=== PATIENT | female | born 1945 | race Caucasian/White ===

== ENCOUNTER 2020-07-06 09:11 | Outpatient (REF) | payer MEDICARE, SELFPAY ==
[2020-07-06 12:30] LABS: Thyroid Stimulating Hormone 2.57 uIU/mL (0.32-4.0)
== END 2020-07-06 09:12 | disposition home or self-care (01) ==
LOC: HO.HMGCLDS 09:11
PROVIDERS: Visit Provider Nurse Practitioner Family
DX: E03.9 Hypothyroidism, unspecified (principal)
CPT/HCPCS: 84443

== ENCOUNTER 2021-11-18 11:54 | Outpatient (REF) | payer MEDICARE, SELFPAY ==
[2021-11-18 12:22] LABS: Binax Internal Control QC Valid; Binax Now Covid-19 Ag Negative (Negative)
== END 2021-11-18 11:55 | disposition home or self-care (01) ==
LOC: HO.HMGCLDS 11:54
PROVIDERS: Visit Provider Physician Assistant Medical
DX: Z20.822 Contact with and (suspected) exposure to COVID-19 (principal); B37.0 Candidal stomatitis
CPT/HCPCS: 87071; 87205

== ENCOUNTER 2022-01-12 13:35 | Outpatient (REF) | payer MEDICARE, SELFPAY ==
--- NOTE | ~2022-01-12 | MR_ITS ---
MRI OF THE BRAIN WITHOUT IV CONTRAST INDICATION: FREQUENT FALLS COMPARISON: None available. TECHNIQUE: Multiplanar multisequence MR imaging of the brain was obtained without IV contrast. FINDINGS: There is no hydrocephalus, extra-axial surface collection, or herniation. There is global cerebral volume loss and there is moderate chronic microangiopathy. The major flow voids at the skull base are preserved. There is no acute infarct on diffusion-weighted imaging. There is no intracranial hemorrhage on the gradient recalled echo acquisition. The midline structures are normal. The cerebellar tonsils are normally positioned. The cerebellum and brainstem are normal. The craniocervical junction is normal. Osseous marrow signal intensity is homogenous. The visualized soft tissues are unremarkable. MR/MR head/brain wo con IMPRESSION: - No acute intracranial findings. - There is global cerebral volume loss and there is moderate chronic microangiopathy.
--- NOTE | ~2022-01-12 | XR_ITS ---
EXAMINATION: XR CHEST CLINICAL INFORMATION: SOB, dyspnea on exertion. COMPARISON: Chest 06/18/2013. TECHNIQUE: 2 views of the chest were obtained. FINDINGS: The lungs are well expanded and clear. The heart size and pulmonary vascularity is normal. There are two soft tissue densities along the right lateral chest wall new since the previous study. Suspect pleural-based lesions. No gross bony abnormality involving the ribs except for mild spondylosis dorsal spine. XR/XR chest 2V IMPRESSION: Expanded lungs with no acute pneumonic process. New soft tissue densities along the right lateral chest wall question pleural-based lesions. Recommend CT chest for further evaluation.
== END 2022-01-12 13:36 | disposition home or self-care (01) ==
LOC: HO.MRI 13:35
PROVIDERS: Visit Provider Nurse Practitioner Family
DX: R29.6 Repeated falls (principal); R06.02 Shortness of breath
CPT/HCPCS: 70551; 71046

== ENCOUNTER → 2022-02-24 07:29 | Outpatient (REF) | payer MEDICARE, SELFPAY ==
--- NOTE | 2022-02-24 07:34 | CA_ITS ---
Transthoracic Echocardiogram Patient (Last, First, Middle): Muna Styles A Gender: Female Date of : 1945 Age: 76 Procedure Date: 02/24/2022 Procedure Type: Transthoracic Echocardiogram Location: OP Height: 165.1 cm Weight: 84.82 kg BSA: 1.92 m2 Heart Rate: 88 bpm BP: 124 / 62 mmHg Computer Equipment Installer: SB Referring MD: Kelly Wise NP Symptoms: SOB JUDGE Study Quality: Fair/Contrast ECG Rhythm: Sinus Conclusions: - The left ventricular systolic function is hyperdynamic. The calculated ejection fraction is 71% by biplane method. - With agitated saline contrast, no interatrial shunting at rest. During valsalva, few bubbles cross over indicating small PFO. - No obvious valvular pathology seen on this study. - There is a small loculated pericardial effusion overlying the left ventricle. Findings Procedure Information Contrast agent, definity, is being given per protocol without apparent complications. Left Ventricle Normal left ventricular cavity size. The left ventricular systolic function is hyperdynamic. The calculated ejection fraction is 71% by biplane method. E/E prime ratio is <8, consistent with normal filling pressures. Evidence suggests grade I (mild) diastolic dysfunction. There is mild septal asymmetric hypertrophy. Right Ventricle Normal right ventricular cavity size and systolic function. Atria Both atria are normal in size. With agitated saline contrast, no interatrial shunting at rest. During valsalva, few bubbles cross over indicating small PFO. Aortic Valve There is a normal trileaflet aortic valve. There is no aortic valve stenosis. There is no aortic valve regurgitation. Mitral Valve The mitral valve appears normal. There is no mitral valve regurgitation. There is no mitral valve stenosis. Pulmonic Valve The pulmonic valve is likely normal. Tricuspid Valve There is trace tricuspid valve regurgitation. The pulmonary artery systolic pressure is normal. Great Vessels The aortic annulus, sinuses of valsalva, and asc aorta are normal in size. Venous The inferior vena cava is normal in size and collapses greater than 50% with inspiration. Pericardium/Pleural There is a small loculated pericardial effusion overlying the left ventricle. There are no definitive echocardiographic findings of tamponade physiology. Prior Study Comparison No prior study available for comparison. Recommendations, Care & Conclusions No obvious valvular pathology seen on this study. Measurements 2D Linear Measurements IVSd: 1.19 0.6-0.9/0.6-1.0 cm LVIDd: 3.98 3.9-5.3/4.2-5.9 cm LVIDd Index: 2.07 2.4-3.2/2.2-3.1 cm/m2 LVIDs: 2.32 2.0-3.6 cm LVPWd: 0.90 0.7-1.1 cm LA Diam: 4.20 2.7-3.8/3.0-4.0 cm LAIDs Index: 2.19 1.5-2.3 cm/m2 LV Mass: 166.57 67-162/88-224 g LV Mass Index: 86.75 43-95/49-115 g/m2 LVOT Diam: 2.20 3.0+(-)1.3 cm 2D Systolic Function EF 4C: 81.60 >55% EF 2C: 55.40 >55% EF BiP: 70.70 >55% Mitral Valve MV Pk E: 0.67 MV PK A: 0.81 MV Decel Time: 177.00 E/A: 0.80 E'Lateral: 4.90 E'Medial: 4.57 E/E' Med: 14.70 E/E' Lat: 13.70 PHT: 52.00 MVA PHT: 4.23 Decel [place]: 3.80 Aortic Valve AoV Pk Mike: 1.02 AoV Mn Mike: 0.75 AoV VTI: 0.19 AoV Pk Grad: 4.00 Aov Mn Grad: 2.00 KESHAV Cont.VTI: 3.92 LVOT LVOT Pk Mike: 0.88 LVOT Mn Mike: 0.63 LVOT VTI: 0.19 LVOT Pk Grad: 3.00 LVOT Mn Grad: 2.00 LVOT Diam: 2.20 LVOT Area: 3.80 Diastolic Function MV Pk E: 0.67 MV Pk A: 0.81 E/A: 0.80 E'Medial: 4.57 E/E' Med: 14.70 E' Laterial: 4.90 E/E' Lat: 13.70 Right Ventricle TAPSE (mm): 18.20 TVS' Mike: 14.10 Tricuspid Valve RA Press: 3.00 Great Vessels Aorta Sinus of Valsalva: 3.30 2.0-3.5 cm Ao Asc: 3.00 2.1-3.4 cm Pulmonary Valve PV Pk Mike: 1.02 Peak PV Grad: 4.00 Updated in Other Vendor System with Status of Final Satish Baldwin MD electronically signed on 02/26/2022 11:12:13 AM with status of Final
== END ==
LOC: HO.CARD 07:29
PROVIDERS: Visit Provider Nurse Practitioner Family
DX: R06.00 Dyspnea, unspecified (principal); R06.02 Shortness of breath
CPT/HCPCS: 93306; Q9957

== ENCOUNTER 2023-01-26 11:17 | Outpatient (REF) | payer MEDICARE, SELFPAY ==
[2023-01-26 14:31] LABS: MANUAL DIFF FLAG NO
[2023-01-26 14:43] LABS: Basophils Absolute Auto 0.1 X10*3/uL (0.0-0.2); Basophils Percent Auto 1.1 % (0-2); Eosinophils Absolute Auto 0.3 X10*3/uL (0.0-0.4); Eosinophils Percent Auto 3.8 % (0-4); Hemoglobin 12.8 g/dl (12.0-16.0); Imm Gran Abs Auto 0.02 X10*3/uL (0.00-0.03); Imm Gran Pct Auto 0.3 % (0.0-0.4); Lymphocytes Absolute Auto 2.2 X10*3/uL (1.2-4.9); Lymphocytes Percent Auto 30.9 % (20-40); Mean Corpuscular Hemoglobin 31.1 pg (27.0-33.0); Mean Corpuscular Volume 97.1 fL (80.0-98.0); Mean Platelet Volume 10.9 fL (9.4-12.3); Monocytes Absolute Auto 0.5 X10*3/uL (0.1-1.2); Monocytes Percent Auto 7.5 % (2-11); Neutrophils Percent Auto 56.4 % (45-73); Platelet Count 343 X10*3/uL (160-400); Red Blood Count 4.12 X10*6/uL (4.20-5.50); Red Cell Distribution Width 14.1 % (11.0-16.0); White Blood Count 7.2 X10*3/uL (4.8-10.8)
[2023-01-26 15:03] LABS: Alanine Aminotransferase 12 U/L (0-31); Albumin Level 4.2 g/dL (3.5-5.0); Alkaline Phosphatase 88 U/L (39-117); Anion Gap 15 (12-20); Aspartate Amino Transferase 13 U/L (5-31); Bilirubin Total 0.7 mg/dL (0.0-1.0); Blood Urea Nitrogen 33 mg/dL (9-16); Calcium 9.2 mg/dL (8.4-10.2); Carbon Dioxide 22 mmol/L (22-29); Chloride 108 mmol/L (96-108); Cholesterol 211 mg/dL; Estimated Glomerular Filt Rate 51; Glucose Fasting 104 mg/dL (60-99); HDL Cholesterol 44 mg/dL; LDL Cholesterol Calculated 145 mg/dl; Potassium 4.4 mmol/L (3.3-5.1); Sodium 141 mmol/L (135-145); Total Protein 7.1 g/dL (6.5-8.0); Triglycerides 110 mg/dL
[2023-01-26 15:22] LABS: TSH reflex Free T4 1.98 uIU/mL (0.32-4.0); Vitamin D 25-OH Total 32.6 ng/mL (>30)
== END 2023-01-26 11:18 | disposition home or self-care (01) ==
LOC: HO.HMGCLDS 11:17
PROVIDERS: PCP Internal Medicine; Visit Provider Internal Medicine
DX: Z00.00 Encounter for general adult medical examination without abnormal findings (principal); E03.9 Hypothyroidism, unspecified; E55.9 Vitamin D deficiency, unspecified
CPT/HCPCS: 36415; 80053; 80061; 82306; 84443; 85025

== ENCOUNTER 2023-07-31 12:28 | Outpatient (AMB) | payer MEDICARE, SELFPAY ==
--- NOTE | 2023-07-31 12:44 | A.OFFPC_ITS ---
Vital Signs 07/31/23 12:46 Height 5 ft 5 in Weight 192 lb BMI 31.9 BP 128/78 Blood Pressure Location Rt brachial Position Sitting Pulse 94 Pulse Source Pulse Oximeter Pulse Oximetry (%) 98 Oxygen Delivery Method Room Air Intake Visit Reasons: 6m follow up thyroid Intake Note: Pt is here today for 6 months follow up visit. Pt states that she has been getting SOB and wheezing, she has been having dry cough.Pt also states that she has been getting cramping in her legs. Allergies No Known Allergies Allergy (Mild, Unverified 07/31/23 12:48) NOT APPLICABLE Medication List - Last Reconciled 07/31/23 by Nisha Paz MD ketoconazole 2% 1 appl topical DAILY levothyroxine 100 mcg PO DAILY mirtazapine 15 mg PO BEDTIME omeprazole 20 mg PO DAILY Tobacco use date assessed: 07/31/23 Fall risk assessment: 2 + Falls in past year Last assessed Fall Risk: 07/31/23 Dental Screening Dental Screen Date: 07/31/23 Did you have a dental visit in the last 12 months?: Yes Did you have a dental problem in the last 6 months where you did not have access to dental care?: No Was dental information given to patient?: Patient has dentist HPI 6m follow up thyroid HPI Details Pt presents for f/u. Patient reports worsening depression since she stopped taking citalopram which was not effective and had interaction with omeprazole. Patient denies suicidal ideation change in appetite but complains of insomnia. Hypothyroidism is stable on levothyroxine. patient follows up with GI for chronic GERD stable on omeprazole. [facility] Medical History (Updated 07/31/23 @ 13:46 by Nisha Paz MD) Thrush, oral Surgical History Hx of total knee replacement Hx of bilateral hip replacements Hx of bilateral breast reduction surgery Family History Mother Stomach cancer Father Rectal cancer Sister Mental health disorder Brother Throat cancer Brother Leukemia Social History Household Members Other:: single, retired nurse Housing: House Patient Tobacco Use Status: Never used Tobacco e-Cigarette/Vaping Use: Never Used Current occupational status: retired Cognitive needs: No Hearing needs: No Vision needs: No Questionnaire Thrive Questionnaire Date Thrive assessed: 01/26/23 AUDIT C Alcohol Use Questionnaire (AUDIT-C) 1. How often do you have a drink containing alcohol?: Never 3. How often do you have six or more drinks on one occasion?: Never Total Score: 0 HANK-7 AMB Questionnaire HANK-7 Date HANK - 7 assessed: 01/26/23 Source: Developed by Drs. Codey Andersen, Audra Fry, Jayy Ellis and colleagues, with an educational whitney from [employer]. Review of Systems Const All systems reviewed & are unremarkable except as noted in HPI and below Reports no additional complaints Eyes Reports no additional complaints ENT Reports no additional complaints Card Reports no additional complaints Resp Reports no additional complaints GI Reports no additional complaints Reports no additional complaints Physical exam (Primary Care) Vital Signs: Last Vital Signs Pulse 94 07/31/23 12:46 BP 128/78 07/31/23 12:46 Pulse Ox 98 07/31/23 12:46 Oxygen Delivery Method Room Air 07/31/23 12:46 BMI result Body Mass Index 31.9 Tobacco/Smoking Status: Tobacco use Status Tobacco use date assessed 07/31/23 07/31/23 12:54 Patient Tobacco Use Status Never used Tobacco 07/31/23 12:46 e-Cigarette/Vaping Use Never Used 07/31/23 12:46 Thrive Assessment: Date of Thrive Assessment Date Thrive assessed 01/26/23 07/31/23 12:46 Const General: no acute distress HENMT Ears: hearing grossly normal bilaterally Neck Neck: Yes supple Resp Effort & Inspection: normal respiratory effort Auscultation: clear to auscultation bilaterally Cardio Rhythm: regular rhythm Heart sounds: S1 normal heart sound present and S2 normal heart sound present Assessment and Plan Assessment & Plan (1) GERD (gastroesophageal reflux disease): Comment: s/p esophageal dilation , EGD by Dr. Martinez Code(s): K21.9 - Gastro-esophageal reflux disease without esophagitis Plan: Continue PPI follow-up with GI (2) Hypothyroid: Code(s): E03.9 - Hypothyroidism, unspecified Plan: Continue levothyroxine (3) Anxiety and depression: Code(s): F41.9 - Anxiety disorder, unspecified; F32.A - Depression, unspecified Plan: Try Mirtazapine 15 mg q.h.s.pt declined referral to psychiatry, fu 2 months Orders: Orders Lipid Panel 2 Months E03.9 - Hypothyroidism, unspecified, K21.9 - Gastro- esophageal reflux disease without esophagitis, Z00.00 - Encounter for general adult medical examination without abnormal findings Comprehensive [place]. Panel Fast 2 Months E03.9 - Hypothyroidism, unspecified, K21.9 - Gastro-esophageal reflux disease without esophagitis, Z00.00 - Encounter for general adult medical examination without abnormal findings TSH reflex Free T4 2 Months E03.9 - Hypothyroidism, unspecified, K21.9 - Gastro- esophageal reflux disease without esophagitis, Z00.00 - Encounter for general adult medical examination without abnormal findings Complete Blood Count Auto Diff 2 Months E03.9 - Hypothyroidism, unspecified, K21.9 - Gastro-esophageal reflux disease without esophagitis, Z00.00 - Encounter for general adult medical examination without abnormal findings Medications: New mirtazapine 15 mg PO BEDTIME 90 tabs 1RF Coding Level of Care Code Est Pt Level 4 (29753) Diagnoses GERD (gastroesophageal reflux disease) K21.9 Hypothyroid E03.9 Anxiety and depression F41.9; F32.A
[2023-07-31 12:46] VITALS: BP 128/78; PULSE 94; O2SAT 98; BMI 31.9
== END 2023-07-31 13:49 | disposition home or self-care (01) ==
PROVIDERS: PCP Internal Medicine; Visit Provider Internal Medicine
DX: K21.9 Gastro-esophageal reflux disease without esophagitis (principal); E03.9 Hypothyroidism, unspecified; F41.9 Anxiety disorder, unspecified; F32.A Depression, unspecified
CPT/HCPCS: 99214

== ENCOUNTER 2023-09-21 09:42 | Outpatient (REF) | payer MEDICARE, SELFPAY ==
[2023-09-21 13:13] LABS: MANUAL DIFF FLAG NO
[2023-09-21 14:13] LABS: Basophils Absolute Auto 0.1 X10*3/uL (0.0-0.2); Basophils Percent Auto 1.1 % (0-2); Eosinophils Absolute Auto 0.5 X10*3/uL (0.0-0.4); Eosinophils Percent Auto 8.4 % (0-4); Hematocrit 38.7 % (37.0-47.0); Hemoglobin 12.3 g/dl (12.0-16.0); Imm Gran Abs Auto 0.02 X10*3/uL (0.00-0.03); Imm Gran Pct Auto 0.4 % (0.0-0.4); Lymphocytes Absolute Auto 1.8 X10*3/uL (1.2-4.9); Lymphocytes Percent Auto 33.2 % (20-40); Mean Corpuscular HGB Conc 31.8 g/dl (31.0-35.0); Mean Corpuscular Hemoglobin 30.9 pg (27.0-33.0); Mean Corpuscular Volume 97.2 fL (80.0-98.0); Mean Platelet Volume 10.6 fL (9.4-12.3); Monocytes Absolute Auto 0.5 X10*3/uL (0.1-1.2); Monocytes Percent Auto 9.7 % (2-11); Neutrophils Absolute Auto 2.6 x10*3/uL (2.0-8.3); Neutrophils Percent Auto 47.2 % (45-73); Platelet Count 356 X10*3/uL (160-400); Red Blood Count 3.98 X10*6/uL (4.20-5.50); Red Cell Distribution Width 13.9 % (11.0-16.0); White Blood Count 5.5 X10*3/uL (4.8-10.8)
[2023-09-21 14:33] LABS: Alanine Aminotransferase 17 U/L (0-31); Alkaline Phosphatase 88 U/L (39-117); Anion Gap 12 (12-20); Aspartate Amino Transferase 18 U/L (5-31); Bilirubin Total 0.4 mg/dL (0.0-1.0); Blood Urea Nitrogen 22 mg/dL (9-16); Carbon Dioxide 23 mmol/L (22-29); Chloride 110 mmol/L (96-108); Cholesterol 206 mg/dL (<200); Estimated Glomerular Filt Rate 58; Glucose Fasting 95 mg/dL (60-99); HDL Cholesterol 42 mg/dL (>40); LDL Cholesterol Calculated 138 mg/dL (<100); Potassium 3.8 mmol/L (3.3-5.1); Sodium 141 mmol/L (135-145); Total Protein 7.3 g/dL (6.5-8.0); Triglycerides 130 mg/dL (<150)
== END 2023-09-21 09:43 | disposition home or self-care (01) ==
LOC: HO.HMGCLDS 09:42
PROVIDERS: PCP Internal Medicine; Visit Provider Internal Medicine
DX: Z00.00 Encounter for general adult medical examination without abnormal findings (principal); E03.9 Hypothyroidism, unspecified; K21.9 Gastro-esophageal reflux disease without esophagitis
CPT/HCPCS: 36415; 80053; 80061; 84443; 85025

== ENCOUNTER 2023-10-02 12:36 | Outpatient (AMB) | payer MEDICARE, SELFPAY ==
[2023-10-02 13:01] VITALS: BP 126/70; PULSE 96; O2SAT 96; BMI 33.3
--- NOTE | 2023-10-02 13:01 | MHC.PC.OV ---
Vital Signs 10/02/23 13:01 Height 5 ft 5 in Weight 200 lb BMI 33.3 BP 126/70 Blood Pressure Location Lt brachial Position Sitting Pulse 96 Pulse Source Pulse Oximeter Pulse Oximetry (%) 96 Oxygen Delivery Method Room Air Intake Visit Reasons: 2 month fu Intake Note: Pt is here today for 2 months follow up visit. Allergies No Known Allergies Allergy (Mild, Unverified 10/02/23 13:07) NOT APPLICABLE Medication List - Last Reconciled 10/02/23 by Nisha Paz MD ketoconazole 2% 1 appl topical DAILY levothyroxine 100 mcg PO DAILY mirtazapine 15 mg PO BEDTIME omeprazole 20 mg PO DAILY Tobacco use date assessed: 10/02/23 Fall risk assessment: 2 + Falls in past year Last assessed Fall Risk: 10/02/23 Dental Screening Dental Screen Date: 10/02/23 Did you have a dental visit in the last 12 months?: Yes Did you have a dental problem in the last 6 months where you did not have access to dental care?: No Was dental information given to patient?: Patient has dentist HPI 2 month fu HPI Details Pt presents for f/u for anxiety/depression, better on Mirtazapine. Pt gained 8 lbs. Pt c/o lower back when walking and intermittent right knee pain and stiffness. She has an appointment with [place] [facility] next week. Patient reports worsening dyspnea on exertion when walking short distance. She denies PND orthopnea palpitations but had an episode of chest tightness while eating the lasted a few minutes. Patient denies exercise induced chest pains or chest tightness. [facility] Medical History (Updated 10/02/23 @ 13:47 by Nisha Paz MD) Thrush, oral Surgical History (Updated 10/02/23 @ 13:47 by Nisha Paz MD) Hx of total knee replacement Hx of bilateral hip replacements Hx of bilateral breast reduction surgery Family History Mother Stomach cancer Father Rectal cancer Sister Mental health disorder Brother Throat cancer Brother Leukemia Social History Household Members Other:: single, retired nurse Housing: House Patient Tobacco Use Status: Never used Tobacco e-Cigarette/Vaping Use: Never Used Current occupational status: retired Cognitive needs: No Hearing needs: No Vision needs: No Questionnaire Thrive Questionnaire Date Thrive assessed: 01/26/23 HANK-7 AMB Questionnaire HANK-7 Date HANK - 7 assessed: 01/26/23 Source: Developed by Drs. Codey Andersen, Audra Fry, Jayy Ellis and colleagues, with an educational whitney from [employer]. Review of Systems Const All systems reviewed & are unremarkable except as noted in HPI and below Reports no additional complaints Eyes Reports no additional complaints ENT Reports no additional complaints Card Reports no additional complaints Resp Reports no additional complaints GI Reports no additional complaints Physical exam (Primary Care) Vital Signs: Last Vital Signs Pulse 96 10/02/23 13:01 BP 126/70 10/02/23 13:01 Pulse Ox 96 10/02/23 13:01 Oxygen Delivery Method Room Air 10/02/23 13:01 BMI result Body Mass Index 33.3 Tobacco/Smoking Status: Tobacco use Status Tobacco use date assessed 10/02/23 10/02/23 13:02 Patient Tobacco Use Status Never used Tobacco 10/02/23 13:02 e-Cigarette/Vaping Use Never Used 10/02/23 13:02 Thrive Assessment: Date of Thrive Assessment Date Thrive assessed 01/26/23 10/02/23 13:02 Const General: no acute distress HENMT Face and sinus: Yes normal facial exam Neck Neck: Yes no lymphadenopathy Resp Effort & Inspection: normal respiratory effort Auscultation: clear to auscultation bilaterally Cardio Rhythm: regular rhythm Heart sounds: S1 normal heart sound present and S2 normal heart sound present GI Inspection: Yes normal to inspection Palpation (GI): Soft to palpation Percussion: Yes normal to percussion Auscultation: normal bowel sounds Assessment and Plan Assessment & Plan (1) JUDGE (dyspnea on exertion): Code(s): R06.09 - Other forms of dyspnea Plan: Obtain echocardiogram to evaluate (2) Anxiety and depression: Code(s): F41.9 - Anxiety disorder, unspecified; F32.A - Depression, unspecified Plan: Continue Mirtazapine (3) Chronic lower back pain: Code(s): M54.50 - Low back pain, unspecified; G89.29 - Other chronic pain Plan: Patient will follow-up with orthopedics. PT was recommended but patient declined. (4) Hx of total knee replacement: Code(s): Z96.659 - Presence of unspecified artificial knee joint (5) Hypothyroid: Code(s): E03.9 - Hypothyroidism, unspecified Plan: Continue levothyroxine Orders: Orders CA echo transthoracic complete Today R06.09 - Other forms of dyspnea Coding Level of Care Code Est Pt Level 4 (18342) Diagnoses JUDGE (dyspnea on exertion) R06.09 Anxiety and depression F41.9; F32.A Chronic lower back pain M54.50; G89.29 Hx of total knee replacement Z96.659 Hypothyroid E03.9
== END 2023-10-02 13:50 | disposition home or self-care (01) ==
PROVIDERS: PCP Internal Medicine; Visit Provider Internal Medicine
DX: R06.09 Other forms of dyspnea (principal); F41.9 Anxiety disorder, unspecified; F32.A Depression, unspecified; M54.50 Low back pain, unspecified; G89.29 Other chronic pain; Z96.659 Presence of unspecified artificial knee joint; E03.9 Hypothyroidism, unspecified
CPT/HCPCS: 99214

== ENCOUNTER 2023-10-26 13:59 | Outpatient (AMB) | payer MEDICARE, SELFPAY ==
[2023-10-26 14:17] VITALS: BP 124/80; PULSE 95; O2SAT 98; BMI 33.3
--- NOTE | 2023-10-26 14:17 | MHC.PC.OV ---
Vital Signs 10/26/23 14:17 Height 5 ft 5 in Weight 200 lb BMI 33.3 BP 124/80 Blood Pressure Location Lt brachial Position Sitting Pulse 95 Pulse Source Pulse Oximeter Pulse Oximetry (%) 98 Oxygen Delivery Method Room Air Intake Visit Reasons: Urinary tract infection Intake Note: Pt is here today for a sick visit. Pt states that 3 weeks ago she had chills. Pt states that for last few days she has been having urine odor and burning when urinating that started this morning. Allergies No Known Allergies Allergy (Mild, Unverified 10/26/23 14:28) NOT APPLICABLE Medication List - Last Reconciled 10/26/23 by Nisha Paz MD doxycycline hyclate 100 mg PO BID ketoconazole 2% 1 appl topical DAILY levothyroxine 100 mcg PO DAILY mirtazapine 15 mg PO BEDTIME omeprazole 20 mg PO DAILY Tobacco use date assessed: 10/02/23 HPI Urinary tract infection HPI Details Patient complains of cloudy urine and dysuria this morning. she denies fever chills abdominal pain nausea vomiting. PFSH Medical History Thrush, oral Surgical History Hx of total knee replacement Hx of bilateral hip replacements Hx of bilateral breast reduction surgery Family History Mother Stomach cancer Father Rectal cancer Sister Mental health disorder Brother Throat cancer Brother Leukemia Social History Household Members Other:: single, retired nurse Housing: House Patient Tobacco Use Status: Never used Tobacco e-Cigarette/Vaping Use: Never Used Current occupational status: retired Cognitive needs: No Hearing needs: No Vision needs: No Questionnaire Thrive Questionnaire Date Thrive assessed: 01/26/23 HANK-7 AMB Questionnaire HANK-7 Date HANK - 7 assessed: 01/26/23 Source: Developed by Drs. Codey Andersen, Audra Fry, Jayy Ellis and colleagues, with an educational whitney from [employer]. Review of Systems Const All systems reviewed & are unremarkable except as noted in HPI and below Reports no additional complaints Eyes Reports no additional complaints ENT Reports no additional complaints Card Reports no additional complaints Resp Reports no additional complaints GI Reports no additional complaints Reports no additional complaints Physical exam (Primary Care) Vital Signs: Last Vital Signs Pulse 95 10/26/23 14:17 BP 124/80 10/26/23 14:17 Pulse Ox 98 10/26/23 14:17 Oxygen Delivery Method Room Air 10/26/23 14:17 BMI result Body Mass Index 33.3 Tobacco/Smoking Status: Tobacco use Status Tobacco use date assessed 10/02/23 10/26/23 14:28 Patient Tobacco Use Status Never used Tobacco 10/26/23 14:28 e-Cigarette/Vaping Use Never Used 10/26/23 14:28 Thrive Assessment: Date of Thrive Assessment Date Thrive assessed 01/26/23 10/26/23 14:28 Const General: no acute distress HENMT Mouth: Normal oral and palatal mucosa present Neck Neck: Yes supple Resp Effort & Inspection: normal respiratory effort Auscultation: clear to auscultation bilaterally Cardio Rhythm: regular rhythm Heart sounds: S1 normal heart sound present and S2 normal heart sound present GI Inspection: Yes normal to inspection Palpation (GI): Soft to palpation Percussion: Yes normal to percussion Auscultation: normal bowel sounds Results AMB Urinalysis, Automated UA Leukoctes 0 Gloria/uL Last Edit by ANNAMARIE Solorio on 10/26/23 14:35 UA Nitrite Negative Last Edit by ANNAMARIE Solorio on 10/26/23 14:35 UA Urobilinogen 0.2 mg/dL Last Edit by ANNAMARIE Solorio on 10/26/23 14:35 UA Protein 0 mg/dL Last Edit by ANNAMARIE Solorio on 10/26/23 14:35 UA pH 6.0 Last Edit by ANNAMARIE Solorio on 10/26/23 14:35 UA Blood 0 Geoffrey/uL Last Edit by ANNAMARIE Solorio on 10/26/23 14:35 UA Specific [place] 1.020 Last Edit by ANNAMARIE Solorio on 10/26/23 14:35 UA Ketone Negative Last Edit by ANNAMARIE Solorio on 10/26/23 14:35 UA Bilirubin 0 mg/dL Last Edit by ANNAMARIE Solorio on 10/26/23 14:35 UA Glucose 0 mg/dL Last Edit by ANNAMARIE Solorio on 10/26/23 14:35 Results Reviewed Results Reviewed: Laboratory Last Values Urine pH (Auto) 6.0 10/26/23 14:33 Specific [place] (Auto) 1.020 10/26/23 14:33 Urine Protein (Auto) 0 mg/dL 10/26/23 14:33 Glucose (UA)(Auto) 0 mg/dL 10/26/23 14:33 Urine Ketones (Auto) Negative 10/26/23 14:33 Urine Blood (Auto) 0 Geoffrey/uL 10/26/23 14:33 Urine Nitrite (Auto) Negative 10/26/23 14:33 Urine Bilirubin (Auto) 0 mg/dL 10/26/23 14:33 Urine Urobilinogen (Auto) 0.2 mg/dL 10/26/23 14:33 Leukocyte Esterase (Auto) 0 Gloria/uL 10/26/23 14:33 Assessment and Plan Assessment & Plan (1) UTI (urinary tract infection): Code(s): N39.0 - Urinary tract infection, site not specified Plan: Check urine culture Macrobid is sent to the pharmacy and supportive care discussed with the pt Orders: Orders Urine Culture Today R30.0 - Dysuria AMB Urinalysis Automated Today Z13.9 - Encounter for screening, unspecified Medications: New nitrofurantoin monohyd/m-cryst 100 mg (Macrobid) must administer with a meal/food 100 mg PO Q12H 7 days 14 caps 0RF Coding Level of Care Code Est Pt Level 3 (55975) Diagnoses UTI (urinary tract infection) N39.0
== END 2023-10-26 14:51 | disposition home or self-care (01) ==
PROVIDERS: PCP Internal Medicine; Visit Provider Internal Medicine
DX: N39.0 Urinary tract infection, site not specified (principal); R30.0 Dysuria
CPT/HCPCS: 81003; 99213

== ENCOUNTER 2023-10-26 14:33 | Outpatient (REF) | payer MEDICARE, SELFPAY | END 2023-10-26 14:34 | disposition home or self-care (01) | LOC: HO.LAB 14:33 | PROVIDERS: Visit Provider Internal Medicine | DX: R30.0 Dysuria (principal) | CPT/HCPCS: 87086; 87088 ==

== ENCOUNTER → 2023-10-30 12:49 | Outpatient (REF) | payer MEDICARE, SELFPAY ==
--- NOTE | 2023-10-30 12:52 | CA_ITS ---
Transthoracic Echocardiogram Patient (Last, First, Middle): Muna Styles A Gender: Female Date of : 1945 Age: 77 Procedure Date: 10/30/2023 Procedure Type: Transthoracic Echocardiogram Location: OP Height: 162.56 cm Weight: 86.18 kg BSA: 1.91 m2 Heart Rate: bpm BP: 120 / 72 mmHg Financing Analyst: YUNIOR Referring MD: Nisha Paz MD Symptoms: R06.09 - Other forms of dyspnea Study Quality: Adequate with Contrast ECG Rhythm: Sinus Conclusions: - The left ventricular systolic function is hyperdynamic. The calculated ejection fraction is 72% by biplane method. - No obvious valvular pathology seen on this study. - There is a small loculated pericardial effusion overlying the left ventricle. Findings Procedure Information Contrast agent, definity, is being given per protocol without apparent complications. Left Ventricle Normal left ventricular cavity size. There is normal left ventricular wall thickness. The left ventricular systolic function is hyperdynamic. The calculated ejection fraction is 72% by biplane method. There is no evidence of regional wall motion abnormalities. Diastolic function is normal for age. Right Ventricle Normal right ventricular cavity size and systolic function. Atria Both atria are normal in size. Aortic Valve There is a normal trileaflet aortic valve. There is no aortic valve stenosis. There is no aortic valve regurgitation. Mitral Valve The mitral valve appears normal. There is no mitral valve regurgitation. There is no mitral valve stenosis. Pulmonic Valve The pulmonic valve is likely normal. Tricuspid Valve There is trace tricuspid valve regurgitation. There is no evidence of pulmonary hypertension. Great Vessels The asc aorta is normal in size. Venous The inferior vena cava is normal in size and collapses greater than 50% with inspiration. Pericardium/Pleural There is a small loculated pericardial effusion overlying the left ventricle. Prior Study Comparison No significant change compared to prior study dated: 02/24/2022. Recommendations, Care & Conclusions No obvious valvular pathology seen on this study. Measurements 2D Linear Measurements IVSd: 1.17 0.6-0.9/0.6-1.0 cm LVIDd: 4.12 3.9-5.3/4.2-5.9 cm LVIDd Index: 2.16 2.4-3.2/2.2-3.1 cm/m2 LVIDs: 2.41 2.0-3.6 cm LVPWd: 1.00 0.7-1.1 cm LA Diam: 3.90 2.7-3.8/3.0-4.0 cm LAIDs Index: 2.04 1.5-2.3 cm/m2 LV Mass: 185.96 67-162/88-224 g LV Mass Index: 97.36 43-95/49-115 g/m2 LVOT Diam: 2.00 3.0+(-)1.3 cm 2D Systolic Function EF 4C: 74.70 >55% EF 2C: 73.20 >55% EF BiP: 71.90 >55% Mitral Valve MV Pk E: 0.74 MV PK A: 1.04 MV Decel Time: 158.00 E/A: 0.70 E'Lateral: 5.55 E'Medial: 4.24 E/E' Med: 17.50 E/E' Lat: 13.40 PHT: 46.00 MVA PHT: 4.78 Decel Laporte: 4.70 Aortic Valve AoV Pk Mike: 1.33 AoV Mn Mike: 0.95 AoV VTI: 0.30 AoV Pk Grad: 7.00 Aov Mn Grad: 4.00 KESHAV Cont.VTI: 2.35 LVOT LVOT Pk Mike: 0.94 LVOT Mn Mike: 0.66 LVOT VTI: 0.22 LVOT Pk Grad: 4.00 LVOT Mn Grad: 2.00 LVOT Diam: 2.00 LVOT Area: 3.14 Diastolic Function MV Pk E: 0.74 MV Pk A: 1.04 E/A: 0.70 E'Medial: 4.24 E/E' Med: 17.50 E' Laterial: 5.55 E/E' Lat: 13.40 Right Ventricle TAPSE (mm): 22.70 TVS' Mike: 12.90 Tricuspid Valve TR Pk Mike: 2.43 TR Pk Grad: 24.00 RA Press: 3.00 RVSP: 27.00 Great Vessels Aorta Sinus of Valsalva: 3.05 2.0-3.[address] [place]: 2.45 1.7-3.4 cm Ao Asc: 3.30 2.1-3.4 cm Updated in Other Vendor System with Status of Final Satish Baldwin MD electronically signed on 10/30/2023 11:56:20 AM with status of Final
== END ==
LOC: HO.CARD 12:49
PROVIDERS: PCP Internal Medicine; Visit Provider Internal Medicine
DX: R06.09 Other forms of dyspnea (principal)
CPT/HCPCS: 93306; Q9957

== ENCOUNTER → 2023-10-30 12:52 | Outpatient (BNV) | payer MEDICARE, SELFPAY | PROVIDERS: PCP Internal Medicine; Visit Provider Internal Medicine | DX: I31.39 Other pericardial effusion (noninflammatory) (principal) | CPT/HCPCS: 93306 ==

== ENCOUNTER 2023-12-28 11:07 | Outpatient (REF) | payer MEDICARE, SELFPAY ==
[2023-12-28 13:05] LABS: MANUAL DIFF FLAG NO
[2023-12-28 13:22] LABS: Basophils Absolute Auto 0.1 X10*3/uL (0.0-0.2); Basophils Percent Auto 1.5 % (0-2); Eosinophils Absolute Auto 0.3 X10*3/uL (0.0-0.4); Eosinophils Percent Auto 4.8 % (0-4); Hematocrit 39.1 % (37.0-47.0); Hemoglobin 12.6 g/dl (12.0-16.0); Imm Gran Abs Auto 0.01 X10*3/uL (0.00-0.03); Imm Gran Pct Auto 0.2 % (0.0-0.4); Lymphocytes Absolute Auto 2.3 X10*3/uL (1.2-4.9); Lymphocytes Percent Auto 38.3 % (20-40); Mean Corpuscular HGB Conc 32.2 g/dl (31.0-35.0); Mean Corpuscular Hemoglobin 30.8 pg (27.0-33.0); Mean Corpuscular Volume 95.6 fL (80.0-98.0); Mean Platelet Volume 10.7 fL (9.4-12.3); Monocytes Absolute Auto 0.6 X10*3/uL (0.1-1.2); Monocytes Percent Auto 9.3 % (2-11); Neutrophils Absolute Auto 2.8 x10*3/uL (2.0-8.3); Neutrophils Percent Auto 45.9 % (45-73); Platelet Count 366 X10*3/uL (160-400); Red Blood Count 4.09 X10*6/uL (4.20-5.50); Red Cell Distribution Width 14.8 % (11.0-16.0); White Blood Count 6.1 X10*3/uL (4.8-10.8)
[2023-12-28 14:02] LABS: Alanine Aminotransferase 14 U/L (0-31); Albumin Level 4.2 g/dL (3.5-5.0); Alkaline Phosphatase 91 U/L (39-117); Anion Gap 16 (12-20); Aspartate Amino Transferase 15 U/L (5-31); Bilirubin Total 0.7 mg/dL (0.0-1.0); Blood Urea Nitrogen 16 mg/dL (9-16); Calcium 9.5 mg/dL (8.4-10.2); Carbon Dioxide 23 mmol/L (22-29); Chloride 108 mmol/L (96-108); Cholesterol 179 mg/dL (<200); Estimated Glomerular Filt Rate 58; Glucose Fasting 104 mg/dL (60-99); HDL Cholesterol 42 mg/dL (>40); LDL Cholesterol Calculated 115 mg/dL (<100); Potassium 4.2 mmol/L (3.3-5.1); Sodium 143 mmol/L (135-145); Total Protein 7.4 g/dL (6.5-8.0); Triglycerides 114 mg/dL (<150)
[2023-12-28 14:08] LABS: TSH reflex Free T4 2.37 uIU/mL (0.32-4.0); Vitamin D 25-OH Total 25.1 ng/mL (>30)
== END 2023-12-28 11:08 | disposition home or self-care (01) ==
LOC: HO.HMGCLDS 11:07
PROVIDERS: PCP Internal Medicine; Visit Provider Internal Medicine
DX: E03.9 Hypothyroidism, unspecified (principal); E55.9 Vitamin D deficiency, unspecified; F32.A Depression, unspecified; F41.9 Anxiety disorder, unspecified
CPT/HCPCS: 36415; 80053; 80061; 82306; 84443; 85025

== ENCOUNTER 2023-12-29 13:15 | Outpatient (REF) | payer MEDICARE, SELFPAY ==
[2023-12-29 16:16] LABS: Appearance Urine Cloudy; Color Urine Yellow; Glucose Urine UA Negative (Negative); Leukocyte Esterase Urine Small (1+) (Negative); Nitrite Urine Negative (Negative); Specific Gravity - Urine 1.015 (1.005-1.025); UMIC TRIGGER UA YES; Urine Blood Negative (Negative); Urine Ketones Negative (Negative); Urine Protein Negative (Neg-Trace)
[2023-12-29 19:13] LABS: RBC Urine 0-2 /HPF (0-2)
[2023-12-29 19:14] LABS: Bacteria Urine 2+ (None Seen); Hyaline Casts Urine 0-2 /LPF (0-2); Other Crystals Urine Present; Squamous Epithelial Cell Urine 0-2 /HPF (0-2); WBC Urine 0-5 /HPF (0-5)
== END 2023-12-29 13:16 | disposition home or self-care (01) ==
LOC: HO.HMGCLNP 13:15
PROVIDERS: PCP Internal Medicine; Visit Provider Internal Medicine
DX: E03.9 Hypothyroidism, unspecified (principal); E55.9 Vitamin D deficiency, unspecified; F41.9 Anxiety disorder, unspecified; F32.A Depression, unspecified
CPT/HCPCS: 81001

== ENCOUNTER 2024-01-02 11:53 | Outpatient (AMB) | payer MEDICARE, SELFPAY ==
--- NOTE | 2024-01-02 12:00 | A.OFFPC_ITS ---
Vital Signs 01/02/24 12:01 Height 5 ft 5 in Weight 194 lb BMI 32.3 BP 124/76 Blood Pressure Location Lt brachial Position Sitting Pulse 91 Pulse Source Pulse Oximeter Pulse Oximetry (%) 96 Oxygen Delivery Method Room Air Intake Visit Reasons: Annual PE Intake Note: Pt is here today for PE. Allergies No Known Allergies Allergy (Mild, Unverified 01/02/24 12:05) NOT APPLICABLE Medication List - Last Reconciled 01/02/24 by Nisha Paz MD ketoconazole 2% 1 appl topical DAILY levothyroxine 100 mcg PO DAILY omeprazole 20 mg PO DAILY Tobacco use date assessed: 01/02/24 Fall risk assessment: No Falls in past year Last assessed Fall Risk: 01/02/24 Dental Screening Dental Screen Date: 10/02/23 HPI Annual PE HPI Details Patient presents for physical PFSH Surgical History Hx of total knee replacement Hx of bilateral hip replacements Hx of bilateral breast reduction surgery Family History Mother Stomach cancer Father Rectal cancer Sister Mental health disorder Brother Throat cancer Brother Leukemia Social History Household Members Other:: single, retired nurse Housing: House Patient Tobacco Use Status: Never used Tobacco e-Cigarette/Vaping Use: Never Used service: No Current occupational status: retired Cognitive needs: No Hearing needs: No Vision needs: No Questionnaire PHQ-9 Over the last 2 weeks, how often have you been bothered by any of the following problems? 1. Little interest or pleasure in doing things: not at all 2. Feeling down, depressed, or hopeless: not at all 3. Trouble falling or staying asleep, or sleeping too much: not at all 4. Feeling tired or having little energy: nearly every day 5. Poor appetite or overeating: not at all 6. Feeling bad about yourself - or that you are a failure or have let yourself or your family down: not at all 7. Trouble concentrating on things, such as reading the newspaper or watching television: not at all 8. Moving or speaking so slowly that other people could have noticed. Or the opposite - being so fidgety or restless that you have been moving around a lot more than usual: not at all 9. Thoughts that you would be better off or of hurting yourself in some way: not at all Total score: 3 Depression Screening Interpretation: Negative Depression Screening Done: Yes 60006 - PHQ-9 Billing: Yes Source: Developed by Drs. Codey Andersen, Audra Fry, Jayy Ellis and colleagues, with an educational whitney from [employer]. Thrive Questionnaire Date Thrive assessed: 01/02/24 I am a: Patient What is your living situation today?: I have a steady place to live Within the past 12 months, did the food you bought not last and you didn't have the money to get more?: Never true Within the past 12 months, did you worry whether your food would run out before you got money to buy more?: Never true Do you have trouble paying for medicines?: No Do you have trouble paying your heating and electricity bill?: No Do you have trouble taking care of your child, family member or friend?: No Do you have trouble with day-to-day activities such as bathing, preparing meals, shopping, managing finances, etc.?: No Are you currently unemployed and looking for a job?: No Are you interested in more education?: No Please select the resources that you would like help with: None Currently or been in a relationship where the following occur: no concerns reported THRIVE Score: 0 HANK-7 AMB Questionnaire HANK-7 Date HANK - 7 assessed: 01/02/24 Feeling nervous, anxious, or on edge: 0 = Not at all Not being able to stop or control worryin = Not at all Worrying too much about different things: 0 = Not at all Trouble relaxin = Not at all Being so restless that it is hard to sit still: 0 = Not at all Becoming easily annoyed or irritable: 0 = Not at all Feeling afraid as if something awful might happen: 0 = Not at all Total HANK-7 score (0-4 normal; 5-9 mild; 10-14 moderate; 15-21 severe): 0 Source: Developed by Drs. Codey Andersen, Jayy Salvador Kroenke and colleagues, with an educational whitney from [employer]. HANK-7 Assessment Billing HANK-7 Assessment Tool: HANK-7 Assessment 66187 Review of Systems Const All systems reviewed & are unremarkable except as noted in HPI and below ENT Reports no additional complaints Card Reports no additional complaints Resp Reports no additional complaints GI Reports no additional complaints Reports no additional complaints Physical exam (Primary Care) Vital Signs: Last Vital Signs Pulse 91 01/02/24 12:01 BP 124/76 01/02/24 12:01 Pulse Ox 96 01/02/24 12:01 Oxygen Delivery Method Room Air 01/02/24 12:01 BMI result Body Mass Index 32.3 Tobacco/Smoking Status: Tobacco use Status Tobacco use date assessed 01/02/24 01/02/24 12:09 Patient Tobacco Use Status Never used Tobacco 01/02/24 12:03 e-Cigarette/Vaping Use Never Used 01/02/24 12:03 Depression Screening Interpretation: Negative Thrive Assessment: Date of Thrive Assessment Date Thrive assessed 01/26/23 01/02/24 12:03 Currently or been in a relationship where the following occur: no concerns reported Const General: no acute distress HENMT Head: Yes normal to inspection Mouth: Normal oral and palatal mucosa present Eyes General: appearance normal, both eyes and all related structures Neck Neck: Yes no lymphadenopathy and Yes supple Resp Effort & Inspection: normal respiratory effort Auscultation: clear to auscultation bilaterally Cardio Rhythm: regular rhythm Heart sounds: S1 normal heart sound present and S2 normal heart sound present GI Inspection: Yes normal to inspection Palpation (GI): Soft to palpation Percussion: Yes normal to percussion Auscultation: normal bowel sounds Assessment and Plan Assessment & Plan (1) Annual physical exam: Code(s): Z00.00 - Encounter for general adult medical examination without abnormal findings Plan: Well-balanced diet regular physical activity weight loss discussed with the patient. Follow-up in 6 months (2) Hypothyroid: Code(s): E03.9 - Hypothyroidism, unspecified Plan: Continue levothyroxine (3) Vitamin D deficiency: Code(s): E55.9 - Vitamin D deficiency, unspecified Plan: Patient will take vitamin-D supplement un the winter months Coding Level of Care Code Est Pt Prev Care >65y(54057) Diagnoses Annual physical exam Z00.00 Hypothyroid E03.9 Vitamin D deficiency E55.9 Additional Codes HANK-7 Assessment Billing - HANK-7 Assessment Tool: HANK-7 Assessment 63139 ([id number])
[2024-01-02 12:01] VITALS: BP 124/76; PULSE 91; O2SAT 96; BMI 32.3
== END 2024-01-02 13:07 | disposition home or self-care (01) ==
PROVIDERS: PCP Internal Medicine; Visit Provider Internal Medicine
DX: Z00.00 Encounter for general adult medical examination without abnormal findings (principal); E03.9 Hypothyroidism, unspecified; E55.9 Vitamin D deficiency, unspecified
CPT/HCPCS: 99397

== ENCOUNTER 2024-05-22 12:27 | Outpatient (AMB) | payer MEDICARE, SELFPAY ==
[2024-05-22 12:35] VITALS: BP 136/82; PULSE 96; O2SAT 98; BMI 31.4
--- NOTE | 2024-05-22 12:35 | A.OFFPC_ITS ---
Vital Signs 05/22/24 12:35 Height 5 ft 5 in Weight 189 lb BMI 31.4 BP 136/82 Blood Pressure Location Rt brachial Position Sitting Pulse 96 Pulse Source Pulse Oximeter Pulse Oximetry (%) 98 Oxygen Delivery Method Room Air Intake Visit Reasons: blood pressure 188/100 Intake Note: Pt is here today for a follow up visit on elevated BP. Allergies No Known Allergies Allergy (Mild, Unverified 05/22/24 12:56) NOT APPLICABLE Medication List - Last Reconciled 05/22/24 by Nisha Paz MD ketoconazole 2% 1 appl topical DAILY levothyroxine 100 mcg PO DAILY omeprazole 20 mg PO DAILY valsartan 40 mg PO DAILY Tobacco use date assessed: 05/22/24 Fall risk assessment: No Falls in past year Last assessed Fall Risk: 05/22/24 Dental Screening Dental Screen Date: 10/02/23 HPI HPI Comments History of Present Illness Details Pt presents for f/u elevated BP on a few occasions. Patient reports being under increased stress for the last few weeks. She complains of insomnia on and off. She denies depression or suicide ideation PFSH Surgical History Hx of total knee replacement Hx of bilateral hip replacements Hx of bilateral breast reduction surgery Family History Mother Stomach cancer Father Rectal cancer Sister Mental health disorder Brother Throat cancer Brother Leukemia Social History Household Members Other:: single, retired nurse Housing: House Patient Tobacco Use Status: Never used Tobacco e-Cigarette/Vaping Use: Never Used service: No Current occupational status: retired Cognitive needs: No Hearing needs: No Vision needs: No Questionnaire Thrive Questionnaire Date Thrive assessed: 01/02/24 HANK-7 AMB Questionnaire HANK-7 Date HANK - 7 assessed: 01/02/24 Source: Developed by Drs. Codey Andersen, Audra Fry, Jayy Ellis and colleagues, with an educational whitney from [employer]. Review of Systems Const All systems reviewed & are unremarkable except as noted in HPI and below Card Reports no additional complaints Resp Reports no additional complaints GI Reports no additional complaints Physical exam (Primary Care) Vital Signs: Last Vital Signs Pulse 96 05/22/24 12:35 Pulse Ox 98 05/22/24 12:35 Oxygen Delivery Method Room Air 05/22/24 12:35 BMI result Body Mass Index 31.4 Tobacco/Smoking Status: Tobacco use Status Tobacco use date assessed 05/22/24 05/22/24 12:57 Patient Tobacco Use Status Never used Tobacco 05/22/24 12:35 e-Cigarette/Vaping Use Never Used 05/22/24 12:35 Thrive Assessment: Date of Thrive Assessment Date Thrive assessed 01/02/24 05/22/24 12:35 Const General: no acute distress HENMT Face and sinus: Yes normal facial exam Neck Neck: Yes supple Resp Effort & Inspection: normal respiratory effort Auscultation: clear to auscultation bilaterally Cardio Rhythm: regular rhythm Heart sounds: S1 normal heart sound present and S2 normal heart sound present GI Inspection: Yes normal to inspection Assessment and Plan Assessment & Plan (1) Hypothyroid: Code(s): E03.9 - Hypothyroidism, unspecified Plan: Continue levothyroxine (2) Vitamin D deficiency: Code(s): E55.9 - Vitamin D deficiency, unspecified Plan: Continue vitamin-D supplement (3) Anxiety and depression: Code(s): F41.9 - Anxiety disorder, unspecified; F32.A - Depression, unspecified Plan: Stress management discussed with the patient she declined medications (4) HTN (hypertension): Code(s): I10 - Essential (primary) hypertension Plan: START 40 MG OF VALSARTAN, INCREASE PHYSICAL ACTIVITY LOW-SODIUM DIET DISCUSSED WITH THE PATIENT FOLLOW-UP IN 1 MONTH Orders: Orders Vitamin D 25-OH Total 1 Month E03.9 - Hypothyroidism, unspecified, E55.9 - Vitamin D deficiency, unspecified, F32.A - Depression, unspecified, F41.9 - Anxiety disorder, unspecified Comprehensive [place]. Panel Fast 1 Month E03.9 - Hypothyroidism, unspecified, E55.9 - Vitamin D deficiency, unspecified, F32.A - Depression, unspecified, F41.9 - Anxiety disorder, unspecified Medications: New valsartan 40 mg PO DAILY 30 tabs 2RF Coding Level of Care Code Est Pt Level 4 (56023) Diagnoses Hypothyroid E03.9 Vitamin D deficiency E55.9 Anxiety and depression F41.9; F32.A HTN (hypertension) I10
== END 2024-05-22 15:12 | disposition home or self-care (01) ==
PROVIDERS: PCP Internal Medicine; Visit Provider Internal Medicine
DX: E03.9 Hypothyroidism, unspecified (principal); E55.9 Vitamin D deficiency, unspecified; F41.9 Anxiety disorder, unspecified; F32.A Depression, unspecified; I10 Essential (primary) hypertension

== ENCOUNTER → 2024-05-22 12:27 | Outpatient (BNVA) | payer MEDICARE, SELFPAY | PROVIDERS: PCP Internal Medicine; Visit Provider Internal Medicine | DX: I10 Essential (primary) hypertension (principal); E03.9 Hypothyroidism, unspecified; E55.9 Vitamin D deficiency, unspecified; F41.9 Anxiety disorder, unspecified; F32.A Depression, unspecified | CPT/HCPCS: 99212 ==

== ENCOUNTER 2024-06-26 08:51 | Outpatient (REF) | payer MEDICARE, SELFPAY ==
[2024-06-26 12:48] LABS: Alanine Aminotransferase 16 U/L (0-31); Albumin Level 4.1 g/dL (3.5-5.0); Alkaline Phosphatase 90 U/L (39-117); Anion Gap 14 (12-20); Aspartate Amino Transferase 22 U/L (5-31); Bilirubin Total 0.4 mg/dL (0.0-1.0); Blood Urea Nitrogen 21 mg/dL (9-16); Calcium 8.8 mg/dL (8.4-10.2); Carbon Dioxide 21 mmol/L (22-29); Chloride 111 mmol/L (96-108); Estimated Glomerular Filt Rate 56; Glucose Fasting 110 mg/dL (60-99); Potassium 4.1 mmol/L (3.3-5.1); Sodium 142 mmol/L (135-145); Total Protein 7.1 g/dL (6.5-8.0)
[2024-06-26 13:11] LABS: Vitamin D 25-OH Total 32.9 ng/mL (>30)
== END 2024-06-26 08:52 | disposition home or self-care (01) ==
LOC: HO.HMGCLDS 08:51
PROVIDERS: PCP Internal Medicine; Visit Provider Internal Medicine
DX: E55.9 Vitamin D deficiency, unspecified (principal); E03.9 Hypothyroidism, unspecified; F41.9 Anxiety disorder, unspecified; F32.A Depression, unspecified
CPT/HCPCS: 36415; 80053; 82306

== ENCOUNTER 2024-07-04 12:27 | Outpatient (AMB) | payer MEDICARE, SELFPAY ==
[2024-07-04 12:36] VITALS: BP 132/76; PULSE 96; O2SAT 98; BMI 32.3
--- NOTE | 2024-07-04 12:36 | MHC.PC.OV ---
Vital Signs 07/04/24 12:36 Height 5 ft 5 in Weight 194 lb 2 oz BMI 32.3 BP 132/76 Blood Pressure Location Rt brachial Position Sitting Pulse 96 Pulse Source Pulse Oximeter Pulse Oximetry (%) 98 Oxygen Delivery Method Room Air Intake Visit Reasons: 6m f/u Allergies No Known Allergies Allergy (Mild, Verified 07/04/24 12:38) NOT APPLICABLE Tobacco use date assessed: 07/04/24 Fall risk assessment: No Falls in past year Last assessed Fall Risk: 07/04/24 Dental Screening Dental Screen Date: 07/04/24 Did you have a dental visit in the last 12 months?: No Did you have a dental problem in the last 6 months where you did not have access to dental care?: No Was dental information given to patient?: No HPI 6m f/u HPI Details Pt presents for f/u of HTN, hypothyroid, GERD. Patient has been on go low diet and lost 8 lb in the last 2 months. PFS Surgical History Hx of total knee replacement Hx of bilateral hip replacements Hx of bilateral breast reduction surgery Family History Mother Stomach cancer Father Rectal cancer Sister Mental health disorder Brother Throat cancer Brother Leukemia Social History Household Members Other:: single, retired nurse Housing: House Patient Tobacco Use Status: Never used Tobacco e-Cigarette/Vaping Use: Never Used service: No Current occupational status: retired Cognitive needs: No Hearing needs: No Vision needs: No Questionnaire PHQ-9 Over the last 2 weeks, how often have you been bothered by any of the following problems? 1. Little interest or pleasure in doing things: several days 2. Feeling down, depressed, or hopeless: not at all 3. Trouble falling or staying asleep, or sleeping too much: several days 4. Feeling tired or having little energy: several days 5. Poor appetite or overeating: not at all 6. Feeling bad about yourself - or that you are a failure or have let yourself or your family down: not at all 7. Trouble concentrating on things, such as reading the newspaper or watching television: not at all 8. Moving or speaking so slowly that other people could have noticed. Or the opposite - being so fidgety or restless that you have been moving around a lot more than usual: several days 9. Thoughts that you would be better off or of hurting yourself in some way: not at all Total score: 4 Depression Screening Interpretation: Negative Depression Screening Done: Yes 69218 - PHQ-9 Billing: Yes Source: Developed by Drs. Codey Andersen, Audra Fry, Jayy Ellis and colleagues, with an educational whitney from [employer]. Thrive Questionnaire Date Thrive assessed: 07/04/24 I am a: Patient What is your living situation today?: I have a steady place to live Within the past 12 months, did the food you bought not last and you didn't have the money to get more?: Never true Within the past 12 months, did you worry whether your food would run out before you got money to buy more?: Never true Do you have trouble paying for medicines?: No Do you have trouble getting transportation to medical appointments?: No Do you have trouble paying your heating and electricity bill?: No Do you have trouble taking care of your child, family member or friend?: No Do you have trouble with day-to-day activities such as bathing, preparing meals, shopping, managing finances, etc.?: No Are you currently unemployed and looking for a job?: No Are you interested in more education?: No Please select the resources that you would like help with: None Currently or been in a relationship where the following occur: No concerns reported THRIVE Score: 0 AUDIT C Alcohol Use Questionnaire (AUDIT-C) 1. How often do you have a drink containing alcohol?: Never 3. How often do you have six or more drinks on one occasion?: Never Total Score: 0 Score Reviewed/Action Taken: Yes HANK-7 AMB Questionnaire HANK-7 Date HANK - 7 assessed: 07/04/24 Feeling nervous, anxious, or on edge: 1 = Several days Not being able to stop or control worryin = Several days Worrying too much about different things: 0 = Not at all Trouble relaxin = Not at all Being so restless that it is hard to sit still: 0 = Not at all Becoming easily annoyed or irritable: 1 = Several days Feeling afraid as if something awful might happen: 0 = Not at all Total HANK-7 score (0-4 normal; 5-9 mild; 10-14 moderate; 15-21 severe): 3 Source: Developed by Drs. Codey Andersen, Audra Fry, Jayy Ellis and colleagues, with an educational whitney from [employer]. HANK-7 Assessment Billing HANK-7 Assessment Tool: HANK-7 Assessment 49882 Review of Systems Const All systems reviewed & are unremarkable except as noted in HPI and below Eyes Reports no additional complaints Card Reports no additional complaints Resp Reports no additional complaints GI Reports no additional complaints Reports no additional complaints Physical exam (Primary Care) Vital Signs: Last Vital Signs Pulse 96 07/04/24 12:36 BP 132/76 07/04/24 12:36 Pulse Ox 98 07/04/24 12:36 Oxygen Delivery Method Room Air 07/04/24 12:36 BMI result Body Mass Index 32.3 Tobacco/Smoking Status: Tobacco use Status Tobacco use date assessed 07/04/24 07/04/24 12:39 Patient Tobacco Use Status Never used Tobacco 07/04/24 12:37 e-Cigarette/Vaping Use Never Used 07/04/24 12:37 PHQ-9: PHQ-9 Score PHQ-9: Total score 4 07/04/24 12:39 Depression Screening Interpretation: Negative Thrive Assessment: Date of Thrive Assessment Date Thrive assessed 07/04/24 07/04/24 12:39 Currently or been in a relationship where the following occur: No concerns reported Const General: no acute distress HENMT Mouth: Normal oral and palatal mucosa present Resp Effort & Inspection: normal respiratory effort Auscultation: clear to auscultation bilaterally Cardio Rhythm: regular rhythm Heart sounds: S1 normal heart sound present and S2 normal heart sound present GI Inspection: Yes normal to inspection Palpation (GI): Soft to palpation Percussion: Yes normal to percussion Auscultation: normal bowel sounds Coding Level of Care Code Est Pt Level 4 (15818) Diagnoses HTN (hypertension) I10 Hypothyroid E03.9 Vitamin D deficiency E55.9 Hyperglycemia R73.9 Additional Codes HANK-7 Assessment Billing - HANK-7 Assessment Tool: HANK-7 Assessment 59208 ([id number]) PHQ-9 - 75039 - PHQ-9 Billing: Yes ([id number]) Assessment & Plan Assessment & Plan (1) HTN (hypertension): Code(s): I10 - Essential (primary) hypertension Category: Medical Plan: Increase valsartan to 80 mg a day check basic metabolic panel in 2 weeks. Continue regular exercise low-sodium diet and weight loss (2) Hypothyroid: Code(s): E03.9 - Hypothyroidism, unspecified Category: Medical Plan: Continue levothyroxine (3) Vitamin D deficiency: Code(s): E55.9 - Vitamin D deficiency, unspecified Category: Medical Plan: Continue vitamin-D (4) Hyperglycemia: Code(s): R73.9 - Hyperglycemia, unspecified Category: Medical Plan: Continue ADA diet and increase exercise and weight loss Orders: Orders Lipid Panel 6 Months E03.9 - Hypothyroidism, unspecified, E55.9 - Vitamin D deficiency, unspecified, I10 - Essential (primary) hypertension, R73.9 - Hyperglycemia, unspecified TSH reflex Free T4 6 Months E03.9 - Hypothyroidism, unspecified, E55.9 - Vitamin D deficiency, unspecified, I10 - Essential (primary) hypertension, R73.9 - Hyperglycemia, unspecified Basic Metabolic Panel 2 Weeks I10 - Essential (primary) hypertension Comprehensive [place]. Panel Fast 6 Months E03.9 - Hypothyroidism, unspecified, E55.9 - Vitamin D deficiency, unspecified, I10 - Essential (primary) hypertension, R73.9 - Hyperglycemia, unspecified Complete Blood Count Auto Diff 6 Months E03.9 - Hypothyroidism, unspecified, E55.9 - Vitamin D deficiency, unspecified, I10 - Essential (primary) hypertension, R73.9 - Hyperglycemia, unspecified Hemoglobin A1c 6 Months E03.9 - Hypothyroidism, unspecified, E55.9 - Vitamin D deficiency, unspecified, I10 - Essential (primary) hypertension, R73.9 - Hyperglycemia, unspecified Vitamin D 25-OH Total 6 Months E03.9 - Hypothyroidism, unspecified, E55.9 - Vitamin D deficiency, unspecified, I10 - Essential (primary) hypertension, R73.9 - Hyperglycemia, unspecified Medications: New valsartan 80 mg PO DAILY 90 tabs 3RF Discontinued valsartan Discontinued Reason: Doctor's Order 40 mg PO DAILY 30 tabs 2RF
== END 2024-07-04 13:10 | disposition home or self-care (01) ==
LOC: HO.HMCC 12:27
PROVIDERS: PCP Internal Medicine; Visit Provider Internal Medicine
DX: I10 Essential (primary) hypertension (principal); E03.9 Hypothyroidism, unspecified; E55.9 Vitamin D deficiency, unspecified; R73.9 Hyperglycemia, unspecified

== ENCOUNTER → 2024-07-04 12:27 | Outpatient (BNVA) | payer MEDICARE, SELFPAY | PROVIDERS: PCP Internal Medicine; Visit Provider Internal Medicine | DX: I10 Essential (primary) hypertension (principal); E03.9 Hypothyroidism, unspecified; E55.9 Vitamin D deficiency, unspecified; R73.9 Hyperglycemia, unspecified | CPT/HCPCS: 96127; 99212 ==

== ENCOUNTER 2024-07-18 13:22 | Outpatient (AMB) | payer MEDICARE, SELFPAY ==
--- NOTE | 2024-07-18 13:28 | MHC.PC.OV ---
Vital Signs 07/18/24 13:31 Height 5 ft 5 in Weight 191 lb BMI 31.8 BP 124/72 Blood Pressure Location Lt brachial Position Sitting Pulse 84 Pulse Source Pulse Oximeter Pulse Oximetry (%) 100 Oxygen Delivery Method Room Air Intake Visit Reasons: 2 week follow up medication Intake Note: Pt is here today for 2 weeks follow up visit. Allergies No Known Allergies Allergy (Mild, Verified 07/18/24 13:33) NOT APPLICABLE Medication List - Last Reconciled 07/18/24 by Nisha Paz MD ketoconazole 2% 1 appl topical DAILY levothyroxine 100 mcg PO DAILY omeprazole 20 mg PO DAILY valsartan 80 mg PO DAILY Tobacco use date assessed: 07/04/24 Dental Screening Dental Screen Date: 07/04/24 HPI 2 week follow up medication HPI Details Patient presents for the follow-up on hypertension hypothyroidism, stable on current medications. PFSH Surgical History Hx of total knee replacement Hx of bilateral hip replacements Hx of bilateral breast reduction surgery Family History Mother Stomach cancer Father Rectal cancer Sister Mental health disorder Brother Throat cancer Brother Leukemia Social History Household Members Other:: single, retired nurse Housing: House Patient Tobacco Use Status: Never used Tobacco e-Cigarette/Vaping Use: Never Used service: No Current occupational status: retired Cognitive needs: No Hearing needs: No Vision needs: No Questionnaire Thrive Questionnaire Date Thrive assessed: 07/04/24 I am a: Patient What is your living situation today?: I have a steady place to live Within the past 12 months, did the food you bought not last and you didn't have the money to get more?: Never true Within the past 12 months, did you worry whether your food would run out before you got money to buy more?: Never true Do you have trouble paying for medicines?: No Do you have trouble getting transportation to medical appointments?: No Do you have trouble paying your heating and electricity bill?: No Do you have trouble taking care of your child, family member or friend?: No Do you have trouble with day-to-day activities such as bathing, preparing meals, shopping, managing finances, etc.?: No Are you currently unemployed and looking for a job?: No Are you interested in more education?: No Please select the resources that you would like help with: None Currently or been in a relationship where the following occur: No concerns reported THRIVE Score: 0 HANK-7 AMB Questionnaire HANK-7 Date HNAK - 7 assessed: 07/04/24 Source: Developed by Drs. Codey Andersen, Audra Fry, Jayy Ellis and colleagues, with an educational whitney from [employer]. Review of Systems Const All systems reviewed & are unremarkable except as noted in HPI and below Card Reports no additional complaints Resp Reports no additional complaints GI Reports no additional complaints Reports no additional complaints Physical exam (Primary Care) Vital Signs: Last Vital Signs Pulse 84 07/18/24 13:31 BP 124/72 07/18/24 13:31 Pulse Ox 100 07/18/24 13:31 Oxygen Delivery Method Room Air 07/18/24 13:31 BMI result Body Mass Index 31.8 Tobacco/Smoking Status: Tobacco use Status Tobacco use date assessed 07/04/24 07/18/24 13:29 Patient Tobacco Use Status Never used Tobacco 07/18/24 13:29 e-Cigarette/Vaping Use Never Used 07/18/24 13:29 Thrive Assessment: Date of Thrive Assessment Date Thrive assessed 07/04/24 07/18/24 13:29 Currently or been in a relationship where the following occur: No concerns reported Const General: no acute distress HENMT Throat: Yes posterior oropharynx normal Resp Effort & Inspection: normal respiratory effort Auscultation: clear to auscultation bilaterally Cardio Rhythm: regular rhythm Heart sounds: S1 normal heart sound present and S2 normal heart sound present GI Inspection: Yes normal to inspection Palpation (GI): Soft to palpation Coding Level of Care Code Est Pt Level 3 (93021) Diagnoses HTN (hypertension) I10 Hypothyroid E03.9 Assessment & Plan Assessment & Plan (1) HTN (hypertension): Code(s): I10 - Essential (primary) hypertension Category: Medical Plan: Continue valsartan low-sodium diet regular physical activity (2) Hypothyroid: Code(s): E03.9 - Hypothyroidism, unspecified Category: Medical Plan: Continue levothyroxine , follow-up in November
[2024-07-18 13:31] VITALS: BP 124/72; PULSE 84; O2SAT 100; BMI 31.8
== END 2024-07-18 13:59 | disposition home or self-care (01) ==
PROVIDERS: PCP Internal Medicine; Visit Provider Internal Medicine
DX: I10 Essential (primary) hypertension (principal); E03.9 Hypothyroidism, unspecified

== ENCOUNTER → 2024-07-18 13:22 | Outpatient (BNVA) | payer MEDICARE, SELFPAY | PROVIDERS: PCP Internal Medicine; Visit Provider Internal Medicine | DX: I10 Essential (primary) hypertension (principal); E03.9 Hypothyroidism, unspecified | CPT/HCPCS: 99212 ==

== ENCOUNTER 2024-12-12 08:07 | Outpatient (REF) | payer MEDICARE, SELFPAY ==
--- OUTSIDE RECORDS SUMMARY | 2024-12-12 08:19 | XMS_ITS ---
Author Organization [facility] Address [address] [place] [address] Care Team Providers Care Unemployment Examiner Name Role Phone Nisha Paz MD Primary Care Provider Unavaila Araceli Mack Unavailable [phone] Felisha Fong Unavailable [phone] REASON FOR VISIT snow Medications Medication SIG (Take, Route, Fr equency, Duration) Notes Start Date End Date Status Aleve Unknown Levothyroxine Sodium Active Synthroid Unknown Diflucan Unknown Nystatin Unknown Social History Tobacco use other than smoking: Question Answer Notes Are you an other tobacco user? No Encounters Encounter Location Date Provider Diagnosis [address] [address] 10/03/2024 Felisha Fong Plan Of Treatment Next Appt Details Provider Name:Araceli coelho, 12/17/2024 02:00:00 PM, [address] [place] [address], [address], Progress Notes * Muna ROSS ADOB:[birth year] (79 yo F)Acc No.[id number]:10/03/2024 Progress Notes Patient:?Muna ROSS Provider:?Felisha Fong DPM :1945???Age:78 Y???Sex:Female D ate:10/03/2024 Address:[address] [place] [phone] Pcp:Nisha Paz MD Subjective: * Chief Complaints: * ???1. Snow. * ROS:?General/Constitutional:?Nausea?denies.?Vomiting?denies.?Hunger Thirst?denies.?Loss appetite?denies.?Chills?denies.?Fatigue?denies.?Fever?denies.?Night Sweats?denies.?Unexplained weight loss?denies.?Unexplained weight gain?denies.?HEENTM:?Dentures?denies.?Dizziness?denies.?Glasses/contacts?admits.?Retinopathy?de nies.?Blurred/double vision?denies.?TMJ?denies.?Discharge/drainage?denies.?Implants?denies.?Sore throat?denies.?Dental implants?denies.?Hard of hearing ?denies.?Difficulty chewing/swallowing/speaking?denies.?Nose bleeds?denies.?Sore mouth?denies.?Respiratory:?On Oxygen?denies.?Pneumonia/pleurisy?denies.?Bronchitis?denies.?Emphysema?denies.?C oughing?denies.?Cough blood?denies.?Shortness of breath?denies.?Wheezing?denies.?Cardiovascular:?Pacemaker?denies.?MVP?denies.?WPW?denies.?CHF?denies.?Heart attack?denies.?Septal defect?denies.?Rapid beat?denies.?Chest pain ?denies.?Atrial Fib.?denies.?Murmur/Palpitations?denies.?Gastrointestinal:?Hemorrhoids?denies.?Stomach/Abdominal pain?denies.?Dark blood stool?denies.?Irritable bowel ?denies.?Constipation?admits.?Diarrhea?denies.?Hematology:?Swelling?denies.?Clots?denies.?Varicose Veins?denies.?Bruising?denies.?Bleeding problem?denies.?Genitourinary:?Blood urine?denies.?Frequent/Painfu/urination/bladder control?denies.?Kidney stones?denies.?Infection (UTI)?denies.?Nephropathy?denies.?sex trans dis (STD)?denies.?Prostate?denies.?Musculoskeletal:?Hammertoes?denies.?Bunions?denies.?Back Pain?admits.?Muscle Cramps/ Resting?denies.?Muscle cramps / walking?admits.?Generalized aches and pains?admits.?Weakness?admits.?Integ.:?Mojica?denies.?Scars?admits.?Corns/calluses?denies.?Ingrown nails?denies.?Painful nails?denies.?Open Sores?denies.?Rashes?denies.?Neurologic:?Difficulty sleeping?admits.?Brain disorder?denies.?Numbness?denies.?Balance trouble?admits.?Confusion?denies.?Fainting/blackouts?denies.?Tingling?denies.?Tr emors?denies.? * Medical History:?Arthritis, Back,Hip,and Knee pain, Cataracts, Diverticulosis, Hiatal hernia, Osteopenia, Reflux, Thyroid disorder, Measles, Mumps, Chicken pox, Joint implants/screws, Transfusions. * Surgical History:?right knee arthroscopy , breast surgery, bilateral , hip surgery , knee surgery, right 01/2016. * Family History:?Mother: dece ased, diagnosed with Other malignant neoplasm of unspecified site.?Father: , diagnosed with Other malignant neoplasm of unspecified site.? * Social History:?Tobacco Use:?Tobacco Use/Smoking?Are you a:: nonsmoker , Additional Findings: Tobacco Non-User: Current non-smoker.?Tobacco use other than smoking?Are you an other tobacco user??No ???Drugs/Alcohol:?Drugs?Have you used drugs other than those for medical reasons in the past 12 months??No ?Alcohol Screen?Did you have a drink containing alcohol in the past year?: No, Points: 0, Interpretation: Negative.?Miscellaneous:?Caffeine: yes, frequency:, 3-5 cups per day. ?Children: no. ?Exercise: yes, walking. ?Marital status: single. ?Occupation: Retired Nurse. * Medications:?Taking Levothyr oxine Sodium , Unknown Synthroid , Unknown Aleve , Unknown Diflucan , Unknown Nystatin Objective: * Vitals:? Assessment: Plan: * Treatment: * Images: * The named appointment provid er may or may not be the originator of this progress note, and it is not deemed complete until electronically signed by the appointment provider. Sign off status: Pending * Provider:?Felisha Fong DPM Date:?2024 Generated for Litzy jonas/Jessica/Naomi on:?12/12/2024 08:19 AM EDT
--- OUTSIDE RECORDS SUMMARY | 2024-12-12 08:20 | XMS_ITS ---
Author Organization [facility] Address [address] [place] [address] Care Team Providers Care Textile Conservator Name Role Phone Nisha Paz MD Primary Care Provider Unavaila Araceli Mack Unavailable [phone] Felisha Fong Unavailable [phone] REASON FOR VISIT [facility] Entered Encounters Encounter Location Date Provider Diagnosis [facility] [address] [place] [address] 09/26/2024 Felisha Fong Plan Of Treatment Next Appt Details Provider Name:Araceli coelho, 12/17/2024 02:00:00 PM, [address] [place], [address], Progress Notes * Muna ROSS ADOB:[birth year] (78 yo F)Acc No.[id number]:09/26/2024 Patient:?Muna ROSS :1945???Age:78 Y???Sex:Female Address:[address] [place] [address] * true * Date:? Generated for Nilei sumi/Jessica/eTransmitting on:?12/12/2024 08:20 AM EDT
--- OUTSIDE RECORDS SUMMARY | 2024-12-12 08:20 | XMS_ITS ---
Author Organization [facility] Address [address] [place] [address] Care Team Providers Care Client Services Assistant Name Role Phone Nisha Paz MD Primary Care Provider Codey Manzanares Unavailable [phone] REASON FOR VISIT cancel appt on 11/20/2024 Encounters Encounter Location Date Provider Diagnosis [facility] [address] [place] [address] 11/14/2024 Codey Martinez Plan Of Treatment No Information Progress Notes * PARIS ROSSDOB: [birth year] (78 yo F)Acc No.[id number]:11/14/2024 Patient:?PARIS ROSS :1945???Age:78 Y???Sex:Female Address:[address] [place] [address] * true * Date:? Generated for Litzy jonas/Jessica/eTransmitting on:?12/12/2024 08:19 AM EDT
--- OUTSIDE RECORDS SUMMARY | 2024-12-12 08:20 | XMS_ITS ---
Author Organization [facility] Address [address] [place] [address] Care Team Providers Care Electrical Continuity Inspector Name Role Phone Brandi ROCA, Nisha Primary Care Provider Codey Manzanares Unavailable [phone] REASON FOR VISIT Patient presents today for a screening colon Encounters Encounter Location Date Provider Diagnosis [facility] [address] [place] [address] 11/20/2024 Codey Martinez Plan Of Treatment No Information Progress Notes * PARIS ROSSDOB: [birth year] (79 yo F)Acc No.[id number]:11/20/2024 Progress Notes Patient:?PARIS ROSS Provider:?Codey Martinez MD :1945???Age:78 Y???Sex:Female D ate:11/20/2024 Address:[address] [place], [place] [id number] Pcp:Nisha Paz MD Subjective: * Chief Complaints: * ???1. Patient presents today for a screening colon. * Medical History:? Objective: * Vitals:? Assessment: Plan: * Treatment: * * The named appointment provid er may or may not be the originator of this progress note, and it is not deemed complete until electronically signed by the appointment provider. Sign off status: Pending * Provider:?Codey Martinez MD Date:? 025 Generated for Litzy jonas/Jessica/eTransmitting on:?12/12/2024 08:20 AM EDT
--- OUTSIDE RECORDS SUMMARY | 2024-12-12 08:20 | XMS_ITS | Clinical Summary ---
Author Organization [facility] Address [address] [place] [address] Care Team Providers Care Dining Services Director Name Role Phone Unavailable Primary Care Provider Unavailabl e Allergies No known active allergies Medications Medication Sig Dispensed Refills Start Date End Date Status [facility] ALL DAY PAIN RELIEF 220 MG tablet TAKE 1 TABLET (220 MG TOTAL) BY MOUTH EVERY 12 (TWELVE) HOURS NEEDED. 180 tablet 2 08/13/2019 Active nystatin (MYCOSTATIN) 770975 UNIT/ML suspension TAKE 1ML BY MOUTH 4 TIMES A DAY FOR 14 DAYS. ADMINISTER 1/2 DOSE IN EACH SIDE OF THE MOUTH 0 11/18/2021 Active levothyroxine (SYNTHROID) tablet 100 mcgIndications:Hypo thyroidism, unspecified type TAKE 1 TABLET BY MOUTH EVERY DAY 90 tablet 3 01/17/2022 Active omeprazole (PriLOSEC) 20 MG capsuleIndications: Gastroesophageal reflux disease without esophagitis TAKE 1 CAPSULE BY MOUTH EVERY DAY 90 capsule 2 09/06/2022 Active citalopram (CeleXA) 40 MG tabletIndications:A nxiety TAKE 1 TABLET BY MOUTH EVERY DAY 90 tablet 1 11/30/2022 Active Active Problems Problem Noted Date Diagnosed Date Hypercholesterolemia 12/21/2018 Acquired hypothyroidism 02/19/2018 Oral annia 02/19/2018 Glaucoma Anxiety GERD (gastroesophageal reflux disease) Immunizations Name Administration Dates Next Due Covid-19 (Pfizer 12+) Bivalent 07/04/2022 Influenza Quad (High Dose Fl uzone) 0.7mL >65Yrs (HD-IIV4) 06/27/2022,06/09/2021,06/01/2020 Pneumococcal Polysaccharide PPSV23 06/27/2022 Tdap 02/19/2018 Family History Medical History Relation Name Comments Cancer Brother Cancer Father Cancer Mother Depression Sister Relation Name Status Comments Brother Father Mother Sister Alive Social History Tobacco Use Types Packs/Day Years Used Date Smoking Tobacco: Never Smokeless Tobacco: Never Tobacco Cessation:Counseling Given: Not Answered Alcohol Use Standard Drinks/Week Comments No 0 (1 standard drink = 0.6 oz pur e alcohol) Sex and Gender Information Value Date Recorded Sex Assigned at Not on file Gender Identity Not on file Sexual Orientation Not on file Job Start Date Occupation Industry Not on file Not on file Not on file Last Filed Vital Signs Vital Sign Reading Time Taken Comments Blood Pressure 140/76 06/27/2022 9:53 AM EDT Pulse 97 06/27/2022 9:53 AM EDT Temperature 36.3 ??C (97.4 ??F) 06/27/2022 9:53 AM ED T Respiratory Rate 19 12/29/2021 8:46 AM EDT Oxygen Saturation 97% 06/27/2022 9:53 AM EDT Inhaled Oxygen Concentration - - Weight 89.4 kg (197 lb) 12/29/2021 8:46 AM EDT Height 165.1 cm (5' 5 ) 06/27/2022 9:53 AM EDT Body Mass Index 32.78 12/29/2021 8:46 AM EDT Plan of Treatment Health Maintenance Due Date Last Done Comments Osteoporosis Screening (DEXA Scan) 05/16/2020 05/16/2018 RSV Adult > 60+ Yrs or (1 - 1-dose 75+ series) 2020 BMI Counseling 06/27/2023 06/27/2022, 05/0 11/2021, 06/22/2021, Additional history exists Depression Screening 06/27/2023 06/27/2022, 06/27/2022, 06/22/2021, Additional history exists Fall Risk Assessment 06/27/2023 06/27/2022, 06/27/2022, 06/22/2021, Additional history exists Pneumococcal Vaccine (2 of 2 - PCV) 06/27/2023 06/27/2022 Preventative Health Evaluation 06/27/2023 06/27/2022, 06/22/2021, 06/24/2019 COVID-19 Vaccine ( season) 2024 06/13/2023, 07/04/2022 Influenza Vaccine (#1) 2024 3, 06/27/2022, 06/09/2021, Additional history exists DTap / Tdap / Td (2 - Td or Tdap) 02/20/2028 02/19/2018 Shingrix-Zoster Vaccine Completed 05/08/20 18, 05/08/2018, 04/25/2017 Hepatitis C Screening Completed 06/27/2022 Hepatitis B Vaccines Aged Out No long er eligible based on patient's age to complete this topic RSV Ped < 20 months Aged Out No longe r eligible based on patient's age to complete this topic
--- OUTSIDE RECORDS SUMMARY | 2024-12-12 08:20 | XMS_ITS | Patient Health Record ---
Author Organization [facility] Address [address] [place] [address] Care Team Providers Care Solar Consultant Name Role Phone Nisha Paz MD Primary Care Provider Unavaila jason IslasAraceli coelho Unavailable [phone] Heavenly Fonge Unavailable [phone] Reason For Referral No Information Medications Medication SIG (Take, Route, Fr equency, Duration) Notes Start Date End Date Status Aleve Unknown Levothyroxine Sodium Active Synthroid Unknown Diflucan Unknown Nystatin Unknown Social History Tobacco use other than smoking: Question Answer Notes Are you an other tobacco user? No Problems Problem Type SNOMED Code ICD Code Onset Dates Problem Status W/U Status Risk Notes Problem Tinea unguium (304648006) Tinea unguium (B35.1) Active confirmed Encounters Encounter Location Date Provider Diagnosis [address] [address] 02/26/2024 Felisha Black [address] [address] 05/09/2024 Felisha Black [address] [address] 06/17/2024 Felisha Black [address] [address] 09/26/[address] [address] 10/03/2024 Felisha Black Plan Of Treatment Pending Test Test Name Order Date [id number] NAIL, 1-07/20/2015 [id number] NAIL, 1-5 11/14/2016 Next Appt Details Provider Name:Araceli Mynor coelho, 12/17/2024 02:00:00 PM, [address] [facility], [place], [address], Insurance Providers Payer Name Payer Address Payer Phone Subscriber Number Group Number Insured Name Patient Relationship to Insured Coverage Start Date Coverage End Date [employer] 65 Medicare [address] [place] [address] [id number] Muna Leiva Self - patient is the insured Medical (General) History Medical History History ICD Code Arthritis Back,Hip,and Knee pain Cataracts Diverticulosis Hiatal hernia Osteopenia Reflux Thyroid disorder Measles Mumps Chicken pox Joint implants/screws Transfusions Surgical History Surgery Date(Month/Year) right knee arthroscopy breast surgery, bilateral hip surgery knee surgery, right 01/2016
--- OUTSIDE RECORDS SUMMARY | 2024-12-12 08:20 | XMS_ITS ---
Author Organization [facility] Address [address] [place] [address] Care Team Providers Care Repairer Maintenance Building Name Role Phone Nisha Paz MD Primary Care Provider Unavaila Araceil Mack Unavailable [phone] Felisha Fong Unavailable [phone] REASON FOR VISIT SD cx 2/6 Encounters Encounter Location Date Provider Diagnosis [facility] [address] [place] [address] 10/03/2024 Felisha Fong Plan Of Treatment Next Appt Details Provider Name:Araceli coelho, 12/17/2024 02:00:00 PM, [address] [place], [address], Progress Notes * Muna ROSS ADOB:[birth year] (78 yo F)Acc No.[id number]:10/03/2024 Patient:?Muna ROSS :1945???Age:78 Y???Sex:Female Address:[address] [place] [address] * true * Date:? Generated for Nilei sumi/Jessica/eTransmitting on:?12/12/2024 08:20 AM EDT
--- OUTSIDE RECORDS SUMMARY | 2024-12-12 08:21 | XMS_ITS | Clinical Summary ---
Author Organization [facility] Address [address] [place] [address] Care Team Providers Care Manager Asset Name Role Phone Kelly Wise NP Primary Care Provider Surgical History Surgery Date Site/Laterality Comments JOINT REPLACEMENT PROCEDURE:JOINT REPLACEMENT;COMMENT:2 hips r knee Medical History Medical History Date Comments Glaucoma DX:Glaucoma Hypothyroidism DX:Hypothyroidis m Anxiety DX:Anxiety GERD (gastroesophageal reflux disease) DX:GERD (gastroesophageal reflux disease) Acquired hypothyroidism 02/19/2018 DX:Acqui red hypothyroidism Family History Medical History Relation Name Comments Cancer Brother Cancer Father Cancer Mother Depression Sister Relation Name Status Comments Brother Father Mother Sister Alive Social History Tobacco Use Types Packs/Day Years Used Date Smoking Tobacco: Never Smokeless Tobacco: Never Alcohol Use Standard Drinks/Week Comments No 0 (1 standard drink = 0.6 oz pur e alcohol) Comments Unknown Sex and Gender Information Value Date Recorded Sex Assigned at Not on file Legal Sex Female 10:09 PM EST Gender Identity Not on file Sexual Orientation Not on file Obstetrics History Last Filed Vital Signs Vital Sign Reading Time Taken Comments Blood Pressure 140/76 06/27/2022 9:53 AM EDT Lef t arm Pulse 97 06/27/2022 9:53 AM EDT Temperature - - Respiratory Rate - - Oxygen Saturation - - Inhaled Oxygen Concentration - - Weight 89.4 kg (197 lb) 12/29/2021 8:46 AM EDT Height 165.1 cm (5' 5 ) 06/27/2022 9:53 AM EDT Body Mass Index 32.78 12/29/2021 8:46 AM EDT Plan of Treatment Health Maintenance Due Date Last Done Comments Zoster Vaccines (1 of 2) 12/11/1995 RSV Immunization Adult Patients (1 - 1-dose 75+ series) 2020 Depression Screening 08/05/2022 Falls Risk Assessment 08/05/2022 Osteoporosis Screening (Bone Density Screening) 08/05/2022 Social Influencers of Health Screening 08/05/2022 Pneumococcal Vaccine: 50+ Years (2 of 2 - PCV) 06/27/2023 06/27/2022 COVID-19 Vaccine (2 - 2023-2 5 season) 2024 07/04/2022 Influenza Vaccine (Season Ended) 2025 06/27/2022, 06/09/2021, 06/01/2020 Cholesterol Screening (Lipid Panel) 06/27/2027 06/27/2022, 06/27/2022 DTaP,Tdap,and Td Vaccines (2 - Td or Tdap) 02/20/2028 02/19/2018 Hepatitis C Screening Completed 06/27/2022 HIB Vaccines Aged Out No longer eligi ble based on patient's age to complete this topic HPV Vaccines Aged Out No longer eligi ble based on patient's age to complete this topic Hepatitis A Vaccines Aged Out No long er eligible based on patient's age to complete this topic Hepatitis B Vaccines Aged Out No long er eligible based on patient's age to complete this topic IPV Vaccines Aged Out No longer eligi ble based on patient's age to complete this topic MMR Vaccines Aged Out No longer eligi ble based on patient's age to complete this topic Meningococcal ACWY Vaccine Aged Out N o longer eligible based on patient's age to complete this topic Meningococcal B Vaccine Aged Out No l onger eligible based on patient's age to complete this topic RSV Immunization Patients Under 20 months Aged Out No longer eligible b ased on patient's age to complete this topic Varicella Vaccines Aged Out No longer eligible based on patient's age to complete this topic Care Teams Manager Asset Relationship Specialty Start Date End Date Kelly Wise NP PCP - General Family Medicine 12/14/17
--- OUTSIDE RECORDS SUMMARY | 2024-12-12 08:21 | XMS_ITS | Patient Health Record ---
Author Organization [facility] Address [address] [place] [address] Care Team Providers Care Roof Mechanic Name Role Phone Nisha Paz MD Primary Care Provider Codey Manzanares Unavailable [phone] Reason For Referral No Information Medications Medication SIG (Take, Route, Fr equency, Duration) Notes Start Date End Date Status Aleve 220 MG 1 tablet as needed O rally every 12 hrs Active Synthroid 112 MCG 1 tablet Orally Once a day Active Diflucan 100 MG 1 tablet Orally Thre e times a Week Active PriLOSEC OTC 20 MG 1 tablet Orally Once a day Active Aleve PM 220-25 MG Orally A ctive Nystatin 687832 UNIT 1 tablet Orally Twice a day Active Problems Problem Type SNOMED Code ICD Code Onset Dates Problem Status W/U Status Risk Notes Problem 576198279 Gastroesophageal reflux disease without esophagitis (K21.9) Active confirmed Problem 249662497 Bad taste in tiara th (R43.8) Active confirmed Encounters Encounter Location Date Provider Diagnosis [facility] [address] [place] [address] 11/14/2024 Codey Martinez Plan Of Treatment Pending Test Test Name Order Date B12 11/17/2016 Future Test Test Name Order Date UPPER GI ENDOSCOPY 06/26/2014 COLONOSCOPY 06/26/2014 Insurance Providers Payer Name Payer Address Payer Phone Subscriber Number Group Number Insured Name Patient Relationship to Insured Coverage Start Date Coverage End Date [facility] [address] [place], [place] [id number] PARIS COLE Self - patient is the insured Medical (General) History Medical History History ICD Code Gastric ulcer--seen on EGD i n 08/2010--H.pylori negative--F/U EGD in 01/2011 showed a healed ulcer--fairly large hiatal hernia, but no esophagitis GERD--as per # 1; EGD in 2013 with a HH--no sig. esophagitis nor Jerome's Hypothyroidism Arthritis--on NSAIDs Denies TX,DM,CVA,Lung disease,renal dise ase Negative colonoscopy in 1997 , 02/2009, 06/2014 and--diverticulosis and internal hemorrhoids Bad taste in her mouth -- Kimberly reyna has been treated in 2015 and 2016 for an apparent yeast infection in the throat area by Dr. Ferris with Diflucan and nystatin Surgical History Surgery Date(Month/Year) Right hip replacement 2010 Breast reduction Right knee arthroscopy Right knee replacement scheduled for 11/27,but had done 01/2016
[2024-12-12 10:09] LABS: MANUAL DIFF FLAG NO
[2024-12-12 10:16] LABS: Basophils Absolute Auto 0.1 X10*3/uL (0.0-0.2); Basophils Percent Auto 1.3 % (0-2); Eosinophils Absolute Auto 0.4 X10*3/uL (0.0-0.4); Eosinophils Percent Auto 5.8 % (0-4); Hematocrit 37.9 % (37.0-47.0); Hemoglobin 12.4 g/dl (12.0-16.0); Imm Gran Abs Auto 0.01 X10*3/uL (0.00-0.03); Imm Gran Pct Auto 0.2 % (0.0-0.4); Lymphocytes Absolute Auto 2.6 X10*3/uL (1.2-4.9); Lymphocytes Percent Auto 40.4 % (20-40); Mean Corpuscular HGB Conc 32.7 g/dl (31.0-35.0); Mean Corpuscular Hemoglobin 32.5 pg (27.0-33.0); Mean Corpuscular Volume 99.5 fL (80.0-98.0); Mean Platelet Volume 10.6 fL (9.4-12.3); Monocytes Absolute Auto 0.5 X10*3/uL (0.1-1.2); Monocytes Percent Auto 7.7 % (2-11); Neutrophils Absolute Auto 2.8 x10*3/uL (2.0-8.3); Neutrophils Percent Auto 44.6 % (45-73); Platelet Count 336 X10*3/uL (160-400); Red Blood Count 3.81 X10*6/uL (4.20-5.50); Red Cell Distribution Width 13.2 % (11.0-16.0); White Blood Count 6.4 X10*3/uL (4.8-10.8)
[2024-12-12 10:26] LABS: Estimated Average Glucose 108 mg/dL; Hemoglobin A1C 117.5795 umol/L; Hemoglobin A1c % 5.4 % (<6.0); Total Hemoglobin (HGBA1C) 3319.6216 umol/L
[2024-12-12 10:39] LABS: Anion Gap 11 (12-20)
[2024-12-12 10:45] LABS: Alanine Aminotransferase 11 U/L (0-31); Albumin Level 3.9 g/dL (3.5-5.0); Aspartate Amino Transferase 22 U/L (5-31); Bilirubin Total 0.7 mg/dL (0.0-1.0); Blood Urea Nitrogen 22 mg/dL (9-16); Calcium 8.8 mg/dL (8.4-10.2); Carbon Dioxide 24 mmol/L (22-29); Chloride 110 mmol/L (96-108); Cholesterol 175 mg/dL (<200); Estimated Glomerular Filt Rate > 60; Glucose Fasting 97 mg/dL (60-99); HDL Cholesterol 37 mg/dL (>40); LDL Cholesterol Calculated 115 mg/dL (<100); Potassium 4.1 mmol/L (3.3-5.1); Sodium 141 mmol/L (135-145); Total Protein 6.9 g/dL (6.5-8.0); Triglycerides 115 mg/dL (<150)
[2024-12-12 11:02] LABS: Alkaline Phosphatase 81 U/L (39-117)
[2024-12-12 11:09] LABS: TSH reflex Free T4 4.28 uIU/mL (0.32-4.0); Vitamin D 25-OH Total 122.6 ng/mL (>30)
[2024-12-12 11:43] LABS: Free T4 (Free Thyroxine) 1.13 ng/dL (0.71-1.85)
== END 2024-12-12 08:08 | disposition home or self-care (01) ==
LOC: HO.HMGCLDS 08:07
PROVIDERS: PCP Internal Medicine; Visit Provider Internal Medicine
DX: I10 Essential (primary) hypertension (principal); E55.9 Vitamin D deficiency, unspecified; E03.9 Hypothyroidism, unspecified; R73.9 Hyperglycemia, unspecified
CPT/HCPCS: 36415; 80053; 80061; 82306; 83036; 84439; 84443; 85025

== ENCOUNTER 2024-12-18 12:33 | Outpatient (AMB) | payer MEDICARE, SELFPAY ==
[2024-12-18 12:36] VITALS: BP 122/70; PULSE 86; RESP 18; TEMP 36.7; O2SAT 97; BMI 32.6
--- NOTE | 2024-12-18 12:36 | A.OFFPC_ITS ---
Vital Signs 12/18/24 12:36 12/18/24 13:12 Height 5 ft 5 in Weight 196 lb BMI 32.6 BP 122/70 138/80 Blood Pressure Location Lt brachial Rt brachial Position Sitting Sitting Respiration 18 Pulse 86 Pulse Source Pulse Oximeter Temp 98.0 F Temp Source Oral Pulse Oximetry (%) 97 Oxygen Delivery Method Room Air Intake Visit Reasons: 6m follow up Intake Note: Pt is here today for 6 months follow up visit. Allergies No Known Allergies Allergy (Mild, Verified 12/18/24 12:36) NOT APPLICABLE Medication List - Last Reconciled 12/18/24 by Nisha Paz MD ketoconazole 2% 1 appl topical DAILY levothyroxine Take 1-1/2 tablet 1 day a week and 1 tablet daily for the rest of the week omeprazole 20 mg PO DAILY valsartan 160 mg PO DAILY Tobacco use date assessed: 12/18/24 Fall risk assessment: No Falls in past year Last assessed Fall Risk: 12/18/24 Dental Screening Dental Screen Date: 12/18/24 HPI 6m follow up HPI Details Patient presents for the follow-up on hypertension hypothyroidism. She has started psychotherapy with geriatric psychologist. Patient complains of discomfort and fullness in the left groin area and some abdominal bloating but no abdominal pain change in bowel movements urination nausea vomiting weight lo ss PFSH Surgical History Hx of total knee replacement Hx of bilateral hip replacements Hx of bilateral breast reduction surgery Family History Mother Stomach cancer Father Rectal cancer Sister Mental health disorder Brother Throat cancer Brother Leukemia Social History Household Members Other:: single, retired nurse Housing: House Patient Tobacco Use Status: Never used Tobacco e-Cigarette/Vaping Use: Never Used service: No Current occupational status: retired Cognitive needs: No Hearing needs: No Vision needs: No Questionnaire PHQ-9 Over the last 2 weeks, how often have you been bothered by any of the following problems? 1. Little interest or pleasure in doing things: not at all 2. Feeling down, depressed, or hopeless: not at all 3. Trouble falling or staying asleep, or sleeping too much: nearly every day 4. Feeling tired or having little energy: several days 5. Poor appetite or overeating: nearly every day 6. Feeling bad about yourself - or that you are a failure or have let yourself or your family down: not at all 7. Trouble concentrating on things, such as reading the newspaper or watching television: not at all 8. Moving or speaking so slowly that other people could have noticed. Or the opposite - being so fidgety or restless that you have been moving around a lot more than usual: not at all 9. Thoughts that you would be better off or of hurting yourself in some way: not at all Total score: 7 Depression Screening Interpretation: Negative Depression Screening Done: Yes 60024 - PHQ-9 Billing: Yes Source: Developed by Drs. Codey Andersen, Audra Fry, Jayy Ellis and colleagues, with an educational whitney from [employer] Thrive Questionnaire Date Thrive assessed: 12/18/24 I am a: Patient What is your living situation today?: I have a steady place to live Within the past 12 months, did the food you bought not last and you didn't have the money to get more?: Never true Within the past 12 months, did you worry whether your food would run out before you got money to buy more?: Never true Do you have trouble paying for medicines?: No Do you have trouble getting transportation to medical appointments?: No Do you have trouble paying your heating and electricity bill?: No Do you have trouble taking care of your child, family member or friend?: I choose not to answer this question Do you have trouble with day-to-day activities such as bathing, preparing meals, shopping, managing finances, etc.?: I choose not to answer this question Are you currently unemployed and looking for a job?: No Are you interested in more education?: No Please select the resources that you would like help with: None Currently or been in a relationship where the following occur: No concerns reported THRIVE Score: 0 AUDIT C Alcohol Use Questionnaire (AUDIT-C) 1. How often do you have a drink containing alcohol?: Never 3. How often do you have six or more drinks on one occasion?: Never Total Score: 0 HANK-7 AMB Questionnaire HANK-7 Date HANK - 7 assessed: 07/04/24 Feeling nervous, anxious, or on edge: 1 = Several days Not being able to stop or control worryin = Not at all Worrying too much about different things: 0 = Not at all Trouble relaxin = Several days Being so restless that it is hard to sit still: 1 = Several days Becoming easily annoyed or irritable: 1 = Several days Feeling afraid as if something awful might happen: 0 = Not at all Total HANK-7 score (0-4 normal; 5-9 mild; 10-14 moderate; 15-21 severe): 4 Source: Developed by Drs. Codey Andersen, Audra Fry, Jayy Ellis and colleagues, with an educational whitney from [employer] HANK-7 Assessment Billing HANK-7 Assessment Tool: HANK-7 Assessment 52640 Review of Systems Const All systems reviewed & are unremarkable except as noted in HPI and below Eyes Reports no additional complaints ENT Reports no additional complaints Card Reports no additional complaints Resp Reports no additional complaints GI Reports no additional complaints Reports no additional complaints Physical exam (Primary Care) Vital Signs: Last Vital Signs Temp 98.0 F 12/18/24 12:36 Pulse 86 12/18/24 12:36 Resp 18 12/18/24 12:36 BP 122/70 12/18/24 12:36 Pulse Ox 97 12/18/24 12:36 Oxygen Delivery Method Room Air 12/18/24 12:36 BMI result Body Mass Index 32.6 Tobacco/Smoking Status: Tobacco use Status Tobacco use date assessed 12/18/24 12/18/24 12:37 Patient Tobacco Use Status Never used Tobacco 12/18/24 12:37 e-Cigarette/Vaping Use Never Used 12/18/24 12:37 PHQ-9: PHQ-9 Score PHQ-9: Total score 7 12/18/24 12:37 Depression Screening Interpretation: Negative Thrive Assessment: Date of Thrive Assessment Date Thrive assessed 12/18/24 12/18/24 12:37 Currently or been in a relationship where the following occur: No concerns reported Const General: no acute distress HENMT Mouth: Normal oral and palatal mucosa present Neck Neck: Yes supple Resp Effort & Inspection: normal respiratory effort Auscultation: clear to auscultation bilaterally Cardio Rhythm: regular rhythm Heart sounds: S1 normal heart sound present and S2 normal heart sound present GI Other: There is slight fullness in the left groin area Inspection: Yes normal to inspection Palpation (GI): Soft to palpation Percussion: Yes normal to percussion Auscultation: normal bowel sounds Coding Level of Care Code Est Pt Level 4 (16528) Diagnoses Hypothyroid E03.9 Left groin hernia K40.90 HTN (hypertension) I10 Additional Codes HANK-7 Assessment Billing - HANK-7 Assessment Tool: HANK-7 Assessment 37981 ([id number]) PHQ-9 - 79091 - PHQ-9 Billing: Yes ([id number]) Assessment & Plan Assessment & Plan (1) Hypothyroid: Code(s): E03.9 - Hypothyroidism, unspecified Category: Medical Plan: Increase levothyroxine by 50 mcg weekly and check a TSH in 2 months (2) Left groin hernia: Code(s): K40.90 - Unilateral inguinal hernia, without obstruction or gangrene, not specified as recurrent Category: Medical Plan: Obtain ultrasound to evaluate for left groin hernia (3) HTN (hypertension): Code(s): I10 - Essential (primary) hypertension Category: Medical Plan: Increase valsartan to 160 mg daily check basic metabolic panel in 2 weeks, follow-up in 2 months Orders: Orders [facility] Today K40.90 - Unilateral inguinal hernia, without obstruction or gangrene, not specified as recurrent Basic Metabolic Panel 2 Weeks I10 - Essential (primary) hypertension TSH reflex Free T4 2 Months E03.9 - Hypothyroidism, unspecified Medications: New valsartan 160 mg PO DAILY 90 tabs 2RF Changed From levothyroxine 100 mcg PO DAILY 90 tabs 3RF To levothyroxine Take 1-1/2 tablet 1 day a week and 1 tablet daily for the rest of the week 100 tabs 3RF Discontinued valsartan Discontinued Reason: Doctor's Order 80 mg PO DAILY 90 tabs 3RF
[2024-12-18 13:12] VITALS: BP 138/80
--- OUTSIDE RECORDS SUMMARY | 2024-12-18 14:48 | XMS_ITS ---
Author Organization [facility] Address [address] [place] [address] Care Team Providers Care Contract Consultant Name Role Phone Brandi ROCA, Nisha Primary Care Provider Unavaila Araceli Mack Unavailable [phone] Felisha Fong Unavailable [phone] REASON FOR VISIT snow Medications Medication SIG (Take, Route, Fr equency, Duration) Notes Start Date End Date Status Aleve Unknown Levothyroxine Sodium Active Synthroid Unknown Diflucan Unknown Nystatin Unknown Social History Tobacco use other than smoking: Question Answer Notes Are you an other tobacco user? No Encounters Encounter Location Date Provider Diagnosis [address] [address] 10/03/2024 Felisha Fong Plan Of Treatment Next Appt Details Provider Name:Araceli coelho, 04/18/2025 02:00:00 PM, [address] [place], [address], Progress Notes * Muna ROSS ADOB:[birth year] (79 yo F)Acc No.[id number]:10/03/2024 Progress Notes Patient:?DOMIMuna JIMENEZ Provider:?Felisha Fong DPM :1945???Age:78 Y???Sex:Female D ate:10/03/2024 Address:[address] [place] [id number] Pcp:Nisha Paz MD Subjective: * Chief Complaints: [...] Fong DPM Date:?2024 Generated for Litzy jonas/Jessica/Naomi on:?12/18/2024 02:48 PM EDT
--- OUTSIDE RECORDS SUMMARY | 2024-12-18 14:48 | XMS_ITS ---
Author Organization [facility] Address [address] [place] [address] Care Team Providers Care Theatre Manager Name Role Phone Nisha Paz MD Primary Care Provider Codey Manzanares Unavailable [phone] REASON FOR VISIT cancel appt on 11/20/2024 Encounters Encounter Location Date Provider Diagnosis [facility] [address] [place] [address] 11/14/2024 Codey Martinez Plan Of Treatment No Information Progress Notes * PARIS ROSSDOB: [birth year] (78 yo F)Acc No.[id number]:11/14/2024 Patient:?DOMIMAMTAPARIS FERNANDES :1945???Age:78 Y???Sex:Female Address:[address] [place] [address] * true * Date:? Generated for Litzy jonas/Jessica/eTransmitting on:?12/18/2024 02:48 PM EDT
--- OUTSIDE RECORDS SUMMARY | 2024-12-18 14:49 | XMS_ITS ---
Author [facility] Address [address] [place] [address] Care Team Providers Care Scrap Metal Collector Name Role Phone Nisha Paz MD Primary Care Provider Araceli Florez Unavailable [phone] Allergies No Known Allergies REASON FOR VISIT At Risk Footcare, Painful Nail(s) aggravated by shoes and causing difficulty standing/walking., Painful Toe(s) Medications Medication SIG (Take, Route, Frequency, Duration) Notes Start Date End Date Status Nystatin Not-Taking Aleve Not-Taking Diflucan Not-Taking Levothyroxine Sodium 100 MCG 1 capsule in the morning on an empty stomach Orally Once a day Active Synthroid Not-Taking Social History Tobacco use other than smoking: Question Answer Notes Are you an other tobacco user? No Problems Problem Type SNOMED Code ICD Code Onset Dates Problem Status W/U Status Risk Notes Problem Bilateral atherosclerosis of arteries of lower limbs (disorder) (35807110817496421 ) Atherosclerosis of [place] artery of both lower extremities, with unspecified presence of clinical manifestation (I70.203) Active confirmed Q7(A), Q8(2B), Q9(1B,2 C) Problem Acquired hammer toe of right foot (2723575026532968) Other hammer toe(s) (acquired), right foot (M20.41) Active confirmed Problem Localized, primary osteoarthritis of the ankle and/or foot (916264415) Arthritis of joint of lesser toe, right (M19.071) Active confirmed Problem Acquired hammer toe of left foot (3581354031829305) Other hammer toe(s) (acquired), left foot (M20.42) Active confirmed Problem Localized, primary osteoarthritis of the ankle and/or foot (220851784) Arthritis of joint of lesser toe, left (M19.072) Active confirmed Vital Signs Height 5 ft 5 in in 12/17/2024 Weight 190 lbs 12/17/2024 BMI 31.61 kg/m2 12/17/2024 Blood pressure systolic 120 mm Hg 12/18/19 25 Blood pressure diastolic 78 mm Hg 025 Encounters Encounter Location Date Provider Diagnosis [facility] [place] [address] [place] [address] 12/17/2024 Araceli Ferreira Atherosclerosis of [place] artery of both lower extremities, with unspecified presence of clinical manifestation I70.203 ; Other hammer toe(s) (acquired), left foot M20.42 ; Tinea unguium B35.1 ; Pain in right toe(s) M79.674 ; Pain in left toe(s) M79.675 and Other hammer toe(s) (acquired), right foot M20.41 Assessments Encounter Date Diagnosis (ICD Code) Assessment Notes Treatment Notes Treatment Clinical Notes Section Notes 12/17/2024 Atherosclerosis of [place] artery of both lower extremities, with unspecified presence of clinical manifestation (ICD-10 - I70.203) Q7(A), Q8(2B), Q9(1B,2C) 12/17/2024 Other hammer toe(s) (acquired), left foot (ICD-10 - M20.42) 12/17/2024 Tinea unguium (ICD-10 - B35.1) 12/17/2024 Pain in right toe(s) (ICD-10 - M79.674) 12/17/2024 Pain in left toe(s) (ICD-10 - M79.675) 12/17/2024 Other hammer toe(s) (acquired), right foot (ICD-10 - M20.41) Plan Of Treatment Next Appt Details Follow Up: 4 Months, Reason: Provider Name:Araceli coehlo, 04/18/2025 02:00:00 PM, [address] [place] [address], [phone], Procedure Notes * Category Sub-Category Detail Notes Keratoma Treatment Parring or Cutting o f Benign Hyperkeratotic Lesion(s) (-56) 2-4 Lesions - Due to the at risk nature of the patients medical condition as documented in the exam findings, performance of this keratoderma treatment is medically necessary as its management by an unskilled/untrained nonprofessional would put this patients foot and overall health at risk. Therefore, the benign hyperkeratotic lesions, (2) in total, locations as stated and described in the exam ( Plantar, TA, T5 ), were pared, and/or cut utilizing a sterile 15 blade, tissue nippers, and/or power dremel instrumentation by the physician of record - 18493 Debride Nails 1-5 Procedure: Due to the cli nical pathology outlined in the exam findings, performance of this nail treatment is medically necessary as its management by an unskilled/untrained nonprofessional would put this patients foot and overall health at risk. Therefore, debridement to affected nail(s), as described in exam ( TA, T1, T5 ), was performed exclusively by the physician of record to reduce/remove overall nail length, girth, thickness, subungual debris, and necrotic tissue, by manual and/or electrical means through the use of a nail nipper and/or dremel stylegrinder, to a more viable healthy nail plate or bed tissue 5 nails or fewer in number. Silver nitrate was used for any petechial bleeding as necessary. Definitive antifungal treatment options, both pharmaceutical and surgical, have been reviewed and discussed with the patient. The patient solely prefers the use of intermittent/as needed professional debridement services for their nail condition and understands that additional periodic treatments may be required as necessary to maintain effective symptomatic relief - 48313 Progress Notes * Muna ROSS ADOB:[birth year] (79 yo F)Acc No.[id number]:12/17/2024 Progress Notes Patient:?NEHADENAMuna Mynor Provider:?Araceli Ferreira DPM :1945???Age:79 Y???Sex:Female D ate:12/17/2024 Address:[address] [place], [place] [address] Pcp:Nisha Paz MD Subjective: * Chief Complaints: * ???At Risk FootcarePainful N ail(s) aggravated by shoes and causing difficulty standing/walking.Painful Toe(s) * HPI: ???At Risk footcare:?Pt States Last PCP Visit:?Date?08/15/2024 ???Toe pain:?Nature:?tenderness, redness, discoloration.?Location:?Great toe, B/L feet.?Duration:?several months.?Onset/Cause:?intermitant?.?Course:?worse.?Aggravated by:?, standing/walking, change in climate.?Treatments:?rest/alter normal daily activity, change in shoes.? * ROS:?General/Constitutional:?Nausea?denies.?Vomiting?denies.?Hunger Thirst?denies.?Loss appetite?denies.?Chills?denies.?Fatigue?denies.?Fever?denies.?Night Sweats?denies.?Unexplained weight loss?denies.?Unexplained weight gain?denies.?HEENTM:?Dentures?denies.?Dizziness?denies.?Glasses/contacts?admits.?Retinopathy?de nies.?Blurred/double vision?denies.?TMJ?denies.?Discharge/drainage?denies.?Implants?denies.?Sore throat?denies.?Dental implants?denies.?Hard of hearing ?denies.?Difficulty chewing/swallowing/speaking?denies.?Nose bleeds?denies.?Sore mouth?denies.?Respiratory:?On Oxygen?denies.?Pneumonia/pleurisy?denies.?Bronchitis?denies.?Emphysema?denies.?C oughing?denies.?Cough blood?denies.?Shortness of breath?denies.?Wheezing?denies.?Cardiovascular:?Pacemaker?denies.?MVP?denies.?WPW?denies.?CHF?denies.?Heart attack?denies.?Septal defect?denies.?Rapid beat?denies.?Chest pain ?denies.?Atrial Fib.?denies.?Murmur/Palpitations?denies.?Gastrointestinal:?Hemorrhoids?denies.?Stomach/Abdominal pain?denies.?Dark blood stool?denies.?Irritable bowel ?denies.?Constipation?admits.?Diarrhea?denies.?Hematology:?Swelling?denies.?Clots?denies.?Varicose Veins?denies.?Bruising?denies.?Bleeding problem?denies.?Genitourinary:?Blood urine?denies.?Frequent/Painfu/urination/bladder control?denies.?Kidney stones?denies.?Infection (UTI)?denies.?Nephropathy?denies.?sex trans dis (STD)?denies.?Prostate?denies.?Musculoskeletal:?Hammertoes?denies.?Bunions?denies.?Back Pain?admits.?Muscle Cramps/ Resting?denies.?Muscle cramps / walking?admits.?Generalized aches and pains?admits.?Weakness?admits.?Integ.:?Mojica?denies.?Scars?admits.?Corns/calluses?denies.?Ingrown nails?denies.?Painful nails?denies.?Open Sores?denies.?Rashes?denies.?Neurologic:?Difficulty sleeping?admits.?Brain disorder?denies.?Numbness?denies.?Balance trouble?admits.?Confusion?denies.?Fainting/blackouts?denies.?Tingling?denies.?Tr emors?denies.? * Medical History:? * Surgical History:?right knee arthroscopy breast surgery, bilateral hip surgery knee surgery, right 01/2016 * Hospitalization/Major Diagno stic Procedure:?Denies Past Hospitalization * Family History:?Mother: dece ased, diagnosed with [...] past year?: No, Points: 0, Interpretation: Negative.?Miscellaneous:?Caffeine: yes. ?Children: no. ?Exercise: no. ?Marital status: single. ?Occupation: Retired Nurse. * Medications:?TakingLevothyro xine Sodium 100 MCG Capsule 1 capsule in the morning on an empty stomach Orally Once a day Taking Levothyroxine Sodium 100 MCG Capsule 1 capsule in the morning on an empty stomach Orally Once a day Not- Taking/PRNSynthroid Aleve Diflucan Nystatin Medication List reviewed and reconciled with the patientNot-Taking/PRN Synthroid Not-Taking/PRN Aleve Not-Taking/PRN Diflucan Not-Taking/PRN Nystatin Medication List reviewed and reconciled with the patient * Allergies:?N.K.D.A.yes[Aller gies Verified] Objective: * Vitals:?Ht:5 ft 5 in, Wt:190 , BMI: 31.61, Shoe size: 10, BP: 120/78 mm Hg, Ht- cm: 165.1 cm, Wt-k.18 kg. * Examination: ???Vascular: ?DP PULSES (B):?2/4, B/L.?PT PULSES (B):? 0/4, B/L.?CAPILLARY FILL TIME:? delayed, all digits, B/L.?TROPHIC CONDITION-TEXTURE/ELASTICITY/TURGOR/HAIR GROWTH (B):? decreased, fragile, thin, shiny skin, with sparse to absent hair growth, B/L.?TEMPERTURE GRADIENT (C):? decreased, cool to cool, proximal to distal, B/L.?PIGMENTATION:?mottled, B/L.?CLAUDICATION (C):?denies, B/L.?REST PAIN:?denies, B/L.?PARESTHESIA (C):?absent, B/L.?BURNING (C):?absent, B/L.?Nails: ?NAILS are:?overgrown, dystrophic, lytic, greater than 3mm thick, discolored and friable with crumbly malodorous subungual debris, with pain on palpation, TA, T1, T5.?Dermatologic: ?SKIN FINDINGS:?Skin exam reveals Keratotic lesion(s) located at , Plantar, TA, T5.?Orthopedic: ?MUSCLE STRENGTH:?5/5 all groups in a symmetrical fashion, B/L.?DIGITAL DEFORMITIES:?Reveals bulbous distal digit with inflammation and Pain on Palpation, TA, T5, with evidence of shoe producing skin irritation.?FOOTWEAR EVALUATION:? shoe gear properties exacerbate patients foot/toe deformity.?Neurological: ?SENSORY:?Neurological exam reveals intact sensorium, pain sensation normal, vibration sensation intact, pinprick sensation is normal in the lower extremities, Pt denies, anesthesia, burning, paresthesia, tingling, B/L.?General Examination: ?GENERAL APPEARANCE:?Reveals a pleasant, alert, well nourished, well- developed, well hydrated individual, who demonstrates proper attention to hygiene/body habitus, and is in no acute distress, Pt serves as own historian for office visit today.?ORIENTED:?person, place, and time.? Assessment: * Assessment: 1.?Other hammer toe(s) (acqu ired), left foot - M20.42 (Primary)???Specify :Chronic problem, Stable (1=3,2=4)???2.?Atherosclerosis of [place] artery of both lower extremities, with unspecified presence of clinical manifestation - I70.203???Notes :Q7(A), Q8(2B), Q9(1B,2C)???3.?Tinea unguium - B35.1???4.?Pain in right toe(s) - M79.674???5.?Pain in left toe(s) - M79.675???6.?Other hammer toe(s) (acquired), right foot - M20.41???Specify :Chronic problem, Stable (1=3,2=4)??? Plan: * Treatment: * Procedures:?Debride Nails 1-5:?Procedure:?Due to the clinical pathology outlined in the exam findings, performance of this nail treatment is medically necessary as its management by an unskilled/untrained nonprofessional would put this patients foot and overall health at risk. Therefore, debridement to affected nail(s), as described in exam (?TA, T1, T5??), was performed exclusively by the physician of record to reduce/remove overall nail length, girth, thickness, subungual debris, and necrotic tissue, by manual and/or electrical means through the use of a nail nipper and/or dremel stylegrinder, to a more viable healthy nail plate or bed tissue 5 nails or fewer in number. Silver nitrate was used for any petechial bleeding as necessary. Definitive antifungal treatment options, both pharmaceutical and surgical, have been reviewed and discussed with the patient. The patient solely prefers the use of intermittent/as needed professional debridement services for their nail condition and understands that additional periodic treatments may be required as necessary to maintain effective symptomatic relief - 78039.?Keratoma Treatment:?Parring or Cutting of Benign Hyperkeratotic Lesion(s)?(-56) 2-4 Lesions - Due to the at risk nature of the patients medical condition as documented in the exam findings, performance of this keratoderma treatment is medically necessary as its management by an unskilled/untrained nonprofessional would put this patients foot and overall health at risk. Therefore, the benign hyperkeratotic lesions, (2) in total, locations as stated and described in the exam (??Plantar,?TA,?T5?), were pared, and/or cut utilizing a sterile 15 blade, tissue nippers, and/or power dremel instrumentation by the physician of record - 83220.? * Procedure Codes:?51515 DEBRI DE NAIL, 1-5, Modifiers: XS 95403 TRIM SKIN LESIONS, 2 TO 4, Modifiers: XS , Q8 * Preventive Medicine:? ??Counseling:?Discussion:?-03: Office or other outpatient visit for the evaluation and management of a new patient, which required a medically appropriate history and/or examination and LOW level of DECISION MAKING for: 1 STABLE ACUTE UNCOMPLICATED PROBLEM, 2 OR MORE MINOR PROBLEMS, OR 1 STABLE CHRONIC PROBLEM, THAT POSE(S) A LOW RISK FOR MORBIDITY/MORTALITY. The visit on the day of the encounter encompassed interpreting the data and educating the patient as to the nature of their condition, treatment options available according to their individual PMH, meds, allergies, and overall health/living conditions, as well as any potential risks or complications that may occur from a failure to adhere to, and participate in, the recommended course of therapy. The discussion included a complete verbal, and/or written explanation of the examination results, any x-rays taken, the proposed diagnosis, and outline of the treatment plan. A schedule for future care needs was also explained. The patient verbalized an understanding of the instructions at this time and agreed to be an active participant in their treatment. If the patient should think of any questions or concerns after the visit, I have encouraged the patient to call the office.?Digital Treatment:?HT- I explained to the patient the possible etiologies of Hammertoes, including genetics/foot type/shoegear/activity level/exercise routine and the risks/benefits of all the different treatment options for their pain including: No treatment at all, Rest, Ice, New/supportive/wider/deeper Shoe gear, Digital Padding/Strapping/Taping/Bracing/Gel protective sleeves, Foot/Ankle AFO Bracing, Stretching exercises, Deep Tissue Massage, Arch support/shoe inserts with splay metatarsal padding, and Custom orthoses. I insisted that any digital devices be removed daily and not worn overnight for safety. The patient is to carefully examine the toes daily for any skin irritation while using any splinting or padding device. The advantages and disadvantages of each option were discussed and the patients questions re: shoe gear, padding, custom vs prefabricated inserts, activity level, and consistency in home treatment regimens for optimal success were answered to their verbally confirmed satisfaction.?Shoe Gear Counseling:?The patient and I reviewed the types of shoes they should be wearing. My recommendation included obtaining a well-fitted shoe with a good supportive, non-foldable nor twistable sole, plenty of toe/room for the forefoot, and proper arch support. Based on todays examination, I recommended the patient look for new shoes, by having their feet professionally measured. We discussed that generally the best time of the day for a shoe fitting is the afternoon. Different shoes types and brands to best match the patients occupation and vocation were discussed. Specific brand selection will be up to the patient, their individual foot condition/deformities, and fit. The patient and I reviewed the standard new shoe break in period by wearing them for a few hours a day while checking for redness or sores as wear time is increased. The patient verbally confirmed to understanding the information discussed.? ??Screening/Special Tests:?Fall Risk?Screening:?No falls in the past year ?FALLS: Screening for Future Fall Risk?Have you had any falls with injury in the past year??No * Follow Up:?4 Months * Images: * Sign off status: Completed true * Provider:?Araceli Ferreira DPM Date:? Generated for Litzy jonas/Jessica/eTransmitting on:?12/18/2024 02:48 PM EDT History and Physical Notes * HPI (History of Present Illness) Category Sub-Category Detail Notes Category Not es Toe pain Nature: tenderness, redness, discolo ration Location: Great toe, B/L feet Duration: several months Onset/Cause: intermitant Course: worse Aggravated by: , standing/walking, change in climate Treatments: rest/alter normal da agus activity, change in shoes At Risk footcare Pt States Last PCP Visit: Date: 4 Examination Category Sub-Category Detail Notes Category Not es Neurological SENSORY: Neurological exa m reveals intact sensorium, pain sensation normal, vibration sensation intact, pinprick sensation is normal in the lower extremities, Pt denies, anesthesia, burning, paresthesia, tingling, B/L Dermatologic SKIN FINDINGS: Skin exam reveal s Keratotic lesion(s) located at , Plantar, TA, T5 Orthopedic FOOTWEAR EVALUATION: shoe gear p roperties exacerbate patients foot/toe deformity DIGITAL DEFORMITIES: Reveals bulbous dis shima digit with inflammation and Pain on Palpation, TA, T5, with evidence of shoe producing skin irritation MUSCLE STRENGTH: 5/5 all groups in a symmetrical fashion, B/L General Examination GENERAL APPEARANCE: Reveals a pleasant, alert, well nourished, well-developed, well hydrated individual, who demonstrates proper attention to hygiene/body habitus, and is in no acute distress, Pt serves as own historian for office visit today ORIENTED: person, place, and t sandra Vascular DP PULSES (B): 2/4, B/L PT PULSES (B): 0/4, B/L CAPILLARY FILL TIME: delayed, all digits , B/L TEMPERTURE GRADIENT (C): decreased, cool to cool, proximal to distal, B/L TROPHIC CONDITION-TEXTURE/ELASTICITY/TURGOR/HAIR GROWTH (B): decreased, fragile, thin, shiny skin, wi th sparse to absent hair growth, B/L CLAUDICATION (C): denies, B/L REST PAIN: denies, B/L PIGMENTATION: mottled, B/L PARESTHESIA (C): absent, B/L BURNING (C): absent, B/L Nails NAILS are: overgrown, dystr ophic, lytic, greater than 3mm thick, discolored and friable with crumbly malodorous subungual debris, with pain on palpation, TA, T1, T5
--- OUTSIDE RECORDS SUMMARY | 2024-12-18 14:49 | XMS_ITS ---
Author Organization [facility] Address [address] [place] [address] Care Team Providers Care Car Clerk Pullman Name Role Phone Nisha Paz MD Primary Care Provider Unavaila Araceli Mack Unavailable [phone] Felisha Fong Unavailable [phone] REASON FOR VISIT SD cx 2/6 Encounters Encounter Location Date Provider Diagnosis [facility] [address] [place] [address] 10/03/2024 Felisha Fong Plan Of Treatment Next Appt Details Provider Name:Araceli coelho, 04/18/2025 02:00:00 PM, [address] [place], [address], Progress Notes * Muna ROSS ADOB:[birth year] (78 yo F)Acc No.[id number]:10/03/2024 Patient:?Muna ROSS :1945???Age:78 Y???Sex:Female Address:[address] [place] [address] * true * Date:? Generated for Printi sumi/Jessica/eTransmitting on:?12/18/2024 02:49 PM EDT
--- OUTSIDE RECORDS SUMMARY | 2024-12-18 14:49 | XMS_ITS | Clinical Summary ---
Author Organization [facility] Address [address] [place] [address] Care Team Providers Care Home Visit Field Care Manager Name Role Phone Unavailable Primary Care Provider Unavailabl e Allergies No known active allergies Medications Medication Sig Dispensed Refills Start Date End Date Status [facility] ALL DAY PAIN RELIEF 220 MG tablet TAKE 1 TABLET (220 MG TOTAL) BY MOUTH EVERY 12 (TWELVE) HOURS NEEDED. 180 tablet 2 08/13/2019 Active nystatin (MYCOSTATIN) 844042 UNIT/ML suspension TAKE 1ML BY MOUTH 4 [...]
--- OUTSIDE RECORDS SUMMARY | 2024-12-18 14:50 | XMS_ITS | Patient Health Record ---
Author Organization [facility] saroj Milliken Address [address] [place] [address] Care Team Providers Care Lifter Name Role Phone Brandi ROCA, Nisha Primary Care Provider Unavaila Araceli Mack Unavailable [phone] BlackFelisha Unavailable [phone] Allergies No Known Allergies Reason For Referral No Information Medications Medication SIG (Take, Route, Frequency, Duration) [...] Problem Status W/U Status Risk Notes Problem Acquired hammer toe of right foot (2181274444125787) Other hammer toe(s) (acquired), right foot (M20.41) Active confirmed Problem Tinea unguium (237239322) Tinea unguium (B35.1) Active confirmed Problem Acquired hammer toe of left foot (4969888968413813) Other hammer toe(s) (acquired), left foot (M20.42) Active confirmed Problem Bilateral atherosclerosis of arteries of lower limbs (disorder) (47383736021941885 ) Atherosclerosis of [place] artery of both lower extremities, with unspecified presence of clinical manifestation (I70.203) Active confirmed Q7(A), Q8(2B), Q9(1B,2 C) Problem Localized, primary osteoarthritis of the ankle and/or foot (404633264) Arthritis of joint of lesser toe, left (M19.072) Active confirmed Problem Localized, primary osteoarthritis of the ankle and/or foot (739608855) Arthritis of joint of lesser toe, right (M19.071) Active confirmed Vital Signs Blood pressure diastolic 78 mm Hg 12/17/2024 Height 5 ft 5 in in 12/17/2024 Blood pressure systolic 120 mm Hg 12/17/2024 Weight 190 lbs 12/17/2024 BMI 31.61 kg/m2 12/17/2024 Encounters Encounter Location Date Provider Diagnosis [address] [address] 12/17/2024 Araceli Ferreira Atherosclerosis of [place] artery of both lower extremities, with unspecified presence of clinical manifestation I70.203 ; Other hammer toe(s) (acquired), left foot M20.42 ; Tinea unguium B35.1 ; Pain in right toe(s) M79.674 ; Pain in left toe(s) M79.675 and Other hammer toe(s) (acquired), right foot M20.41 [facility] [address] 02/26/[address] [address] 05/09/[address] [address] 06/17/[address] [address] 09/26/[address] [address] 10/03/2024 Felishaaxel Fong [facility] Encounter Date Diagnosis (ICD Code) Assessment Notes Treatment Notes Treatment Clinical Notes Section Notes 12/17/2024 Other hammer toe(s) (acquired), left foot (ICD-10 - M20.42) 12/17/2024 Atherosclerosis of [place] artery of both lower extremities, with unspecified presence of clinical manifestation (ICD-10 - I70.203) Q7(A), Q8(2B), Q9(1B,2C) 12/17/2024 Tinea unguium (ICD-10 - B35.1) 12/17/2024 Pain in right toe(s) (ICD-10 - M79.674) 12/17/2024 Pain in left toe(s) (ICD-10 - M79.675) 12/17/2024 Other hammer toe(s) (acquired), right foot (ICD-10 - M20.41) Plan Of Treatment Pending Test Test Name Order Date [id number] NAIL, 1-5 07/20/2015 [id number] NAIL, 1-5 11/14/2016 Next Appt Details Provider Name:Araceli coelho, 04/18/2025 02:00:00 PM, [address] [place] [address], [phone], Insurance Providers Payer Name Payer Address Payer Phone Subscriber Number Group Number Insured Name Patient Relationship to Insured Coverage Start Date Coverage End Date [facility] 65 Medicare Preferred [address] [place] [address] [id number] Muan Leiva Self - patient is the insured Medical (General) History Medical History History ICD Code Arthritis Back,Hip,and Knee pain Cataracts Diverticulosis Hiatal hernia Osteopenia Reflux Thyroid disorder Measles Mumps Chicken pox Joint implants/screws Transfusions Surgical History Surgery Date(Month/Year) right knee arthroscopy breast surgery, bilateral hip surgery knee surgery, right 01/2016
--- OUTSIDE RECORDS SUMMARY | 2024-12-18 14:50 | XMS_ITS | Patient Health Record ---
Author Organization [facility] Address [address] [place] [address] Care Team Providers Care Die Forger Name Role Phone Nisha Paz MD Primary Care Provider Codey Manzanares Unavailable [phone] Reason For Referral No Information Medications Medication [...] PM 220-25 MG Orally A ctive Nystatin 139556 UNIT 1 tablet Orally Twice a day Active Problems Problem Type SNOMED Code ICD Code Onset Dates Problem Status W/U Status Risk Notes Problem 399018516 Gastroesophageal reflux disease without esophagitis (K21.9) Active confirmed Problem 324661844 Bad taste in tiara th (R43.8) Active confirmed Encounters Encounter Location Date Provider Diagnosis [facility] [address] [place] [address] 11/14/2024 Codey Martinez Plan Of Treatment Pending Test Test Name Order Date B12 11/17/2016 Future Test Test Name Order Date UPPER GI ENDOSCOPY 06/26/2014 COLONOSCOPY 06/26/2014 Insurance Providers Payer Name Payer Address Payer Phone Subscriber Number Group Number Insured Name Patient Relationship to Insured Coverage Start Date Coverage End Date [facility] [address] [place], [place] [id number] PARIS COLE Self - patient is the insured Medical (General) History Medical History History ICD Code Gastric ulcer--seen on EGD i n 08/2010--H.pylori negative--F/U EGD in 01/2011 showed a healed ulcer--fairly large hiatal hernia, but no esophagitis GERD--as per # 1; EGD in 2013 with a HH--no sig. esophagitis nor Jerome's Hypothyroidism Arthritis--on NSAIDs Denies [place],DM,CVA,Lung disease,renal dise ase Negative colonoscopy in 1997 [...]
--- OUTSIDE RECORDS SUMMARY | 2024-12-18 14:50 | XMS_ITS | Clinical Summary ---
Author Organization [facility] Address [address] [place] [address] Care Team Providers Care Kitchen Mechanic Name Role Phone Kelly Wise NP Primary Care Provider [phone] Surgical History Surgery Date Site/Laterality Comments JOINT [...] age to complete this topic Care Teams Kitchen Mechanic Relationship Specialty Start Date End Date Kelly Wise NP PCP - General Family Medicine 12/14/17
--- OUTSIDE RECORDS SUMMARY | 2024-12-18 14:50 | XMS_ITS ---
Author Organization [facility] Address [address] [place] [address] Care Team Providers Care Tester Food Products Name Role Phone Brandi ROCA, Nisha Primary Care Provider Codey Manzanares Unavailable [phone] REASON FOR VISIT Patient presents today for a screening colon Encounters Encounter Location Date Provider Diagnosis [facility] [address] [place] [address] 11/20/2024 Codey Martinez Plan Of Treatment No Information Progress Notes * PARIS ROSSDOB: [birth year] (79 yo F)Acc No.[id number]:11/20/2024 Progress Notes Patient:?PARIS ROSS Provider:?Codey Martinez MD :1945???Age:78 Y???Sex:Female D ate:11/20/2024 Address:[address] [place], [place] [phone] Pcp:Nisha Paz MD Subjective: * Chief Complaints: [...] MD Date:? 025 Generated for Litzy jonas/Jessica/eTransmitting on:?12/18/2024 02:49 PM EDT
== END 2024-12-18 13:15 | disposition home or self-care (01) ==
LOC: HO.HMCC 12:34
PROVIDERS: PCP Internal Medicine; Visit Provider Internal Medicine
DX: E03.9 Hypothyroidism, unspecified (principal); K40.90 Unilateral inguinal hernia, without obstruction or gangrene, not specified as recurrent; I10 Essential (primary) hypertension

== ENCOUNTER → 2024-12-18 12:33 | Outpatient (BNVA) | payer MEDICARE, SELFPAY | PROVIDERS: PCP Internal Medicine; Visit Provider Internal Medicine | DX: I10 Essential (primary) hypertension (principal); E03.9 Hypothyroidism, unspecified; K40.90 Unilateral inguinal hernia, without obstruction or gangrene, not specified as recurrent | CPT/HCPCS: 96127; 99212 ==

== ENCOUNTER 2025-01-07 15:24 | Outpatient (REF) | payer MEDICARE, SELFPAY ==
--- NOTE | ~2025-01-07 | US_ITS ---
EXAMINATION: US PELVIS LIMITED HISTORY: K40.90 - Unilateral inguinal hernia, without obstruction or gangrene, no... COMPARISON: There are no prior studies for comparison. TECHNIQUE: Sonographic examination of the left inguinal region was performed. FINDINGS: There is an irregularly-shaped 1.2 cm hypoechoic focus in the left inguinal region, which may represent a fat-containing hernia. US/US pelvic limited IMPRESSION: Possible fat-containing left inguinal hernia. This could be confirmed with CT if desired. Electronically signed by: Codey Gautam MD 01/08/2025 07:55 AM EDT
--- OUTSIDE RECORDS SUMMARY | 2025-01-07 16:16 | XMS_ITS ---
Author Organization [facility] Address [address] [place] [address] Care Team Providers Care Powerhouse Mechanic Apprentice Name Role Phone Brandi ROCA, Nisha Primary Care Provider Codey Manzanares Unavailable [phone] REASON FOR VISIT Patient presents today for a screening colon Encounters Encounter Location Date Provider Diagnosis [facility] [address] [place] [address] 11/20/2024 Codey Martinez Plan Of Treatment No Information Progress Notes * PARIS ROSSDOB: [birth year] (79 yo F)Acc No.[id number]:11/20/2024 Progress Notes Patient:?PARIS ROSS Provider:?Codey Martinez MD :1945???Age:78 Y???Sex:Female D ate:11/20/2024 Address:[address] [place], [place] [phone] Pcp:Nisha Paz MD Subjective: * Chief Complaints: [...] MD Date:? 025 Generated for Litzy jonas/Jessica/eTransmitting on:?01/07/2025 04:15 PM EDT
--- OUTSIDE RECORDS SUMMARY | 2025-01-07 16:16 | XMS_ITS ---
Author Organization [facility] Address [address] [place] [address] Care Team Providers Care Analytical Lab Technician Name Role Phone Brandi ROCA, Nisha Primary Care Provider Unavaila Araceli Mack Unavailable [phone] Felisha Fong Unavailable [phone] REASON FOR VISIT snow Medications Medication SIG (Take, Route, Fr equency, Duration) Notes Start Date End Date Status Aleve Unknown Levothyroxine Sodium Active Synthroid Unknown Diflucan Unknown Nystatin Unknown Social History Tobacco use other than smoking: Question Answer Notes Are you an other tobacco user? No Encounters Encounter Location Date Provider Diagnosis [address] [address] 10/03/2024 Felisha Fong Plan Of Treatment Next Appt Details Provider Name:Araceli coelho, 04/18/2025 02:00:00 PM, [address] [place], [address], Progress Notes * Muna ROSS ADOB:[birth year] (79 yo F)Acc No.[id number]:10/03/2024 Progress Notes Patient:?DOMITONY Muna Coelho Provider:?Felisha Fong DPM :1945???Age:78 Y???Sex:Female D ate:10/03/2024 Address:[address] [place] [phone] Pcp:Nisha Paz MD Subjective: * Chief Complaints: [...] Fong DPM Date:?2024 Generated for Litzy jonas/Jessica/Naomi on:?01/07/2025 04:15 PM EDT
--- OUTSIDE RECORDS SUMMARY | 2025-01-07 16:16 | XMS_ITS | Patient Health Record ---
Author Organization [facility] Address [address] [place] [address] Care Team Providers Care Vacuum Metalizing Supervisor Name Role Phone Nisha Paz MD Primary Care Provider Codey Manzanares Unavailable [phone] Reason For Referral No Information Medications Medication [...] PM 220-25 MG Orally A ctive Nystatin 725558 UNIT 1 tablet Orally Twice a day Active Problems Problem Type SNOMED Code ICD Code Onset Dates Problem Status W/U Status Risk Notes Problem 682755116 Gastroesophageal reflux disease without esophagitis (K21.9) Active confirmed Problem 468536636 Bad taste in tiara th (R43.8) Active confirmed Encounters Encounter Location Date Provider Diagnosis [facility] [address] [place] [address] 11/14/2024 Codey Martinez Plan Of Treatment Pending Test Test Name Order Date B12 11/17/2016 Future Test Test Name Order Date UPPER GI ENDOSCOPY 06/26/2014 COLONOSCOPY 06/26/2014 Insurance Providers Payer Name Payer Address Payer Phone Subscriber Number Group Number Insured Name Patient Relationship to Insured Coverage Start Date Coverage End Date [facility] [address] [place], [place] [id number] PARIS COLE Self - patient is the insured Medical (General) History Medical History History ICD Code Gastric ulcer--seen on EGD i n 08/2010--H.pylori negative--F/U EGD in 01/2011 showed a healed ulcer--fairly large hiatal hernia, but no esophagitis GERD--as per # 1; EGD in 2013 with a HH--no sig. esophagitis nor Jerome's Hypothyroidism Arthritis--on NSAIDs Denies [place],DM,CVA,Lung disease,renal dise ase Negative colonoscopy in 1997 [...]
--- OUTSIDE RECORDS SUMMARY | 2025-01-07 16:16 | XMS_ITS ---
Author Organization [facility] Address [address] [place] [address] Care Team Providers Care Party Plan Sales Host/Hostess Name Role Phone Nisha Paz MD Primary Care Provider Codey Manzanares Unavailable [phone] REASON FOR VISIT cancel appt on 11/20/2024 Encounters Encounter Location Date Provider Diagnosis [facility] [address] [place] [address] 11/14/2024 Codey Martinez Plan Of Treatment No Information Progress Notes * PARIS ROSSDOB: [birth year] (78 yo F)Acc No.[id number]:11/14/2024 Patient:?DOMIMAMTAPARIS FERNANDES :1945???Age:78 Y???Sex:Female Address:[address] [place] [address] * true * Date:? Generated for Litzy jonas/Jessica/eTransmitting on:?01/07/2025 04:15 PM EDT
--- OUTSIDE RECORDS SUMMARY | 2025-01-07 16:16 | XMS_ITS ---
Author Organization [facility] Address [address] [place] [address] Care Team Providers Care Customer Care Assistant Name Role Phone Nisha Paz MD Primary Care Provider Unavaila Araceli Mack Unavailable [phone] Felisha Fong Unavailable [phone] REASON FOR VISIT SD cx 2/6 Encounters Encounter Location Date Provider Diagnosis [facility] [address] [place] [address] 10/03/2024 Felisha Fong Plan Of Treatment Next Appt Details Provider Name:Araceli coelho, 04/18/2025 02:00:00 PM, [address] [place], [address], Progress Notes * Muna ROSS ADOB:[birth year] (78 yo F)Acc No.[id number]:10/03/2024 Patient:?Muna ROSS :1945???Age:78 Y???Sex:Female Address:[address] [place] [address] * true * Date:? Generated for Printi sumi/Jessica/eTransmitting on:?01/07/2025 04:15 PM EDT
--- OUTSIDE RECORDS SUMMARY | 2025-01-07 16:16 | XMS_ITS ---
[facility] Address [address] [place] [address] Care Team Providers Care Cessation Systems Outreach Specialist Name Role Phone Nisha Paz MD Primary Care Provider Araceli Florez Unavailable [phone] Allergies No Known Allergies REASON FOR VISIT [...] atherosclerosis of arteries of lower limbs (disorder) (11847981402744364 ) Atherosclerosis of [place] artery of both lower extremities, with unspecified presence of clinical manifestation (I70.203) Active confirmed Q7(A), Q8(2B), Q9(1B,2 C) Problem Acquired hammer toe of right foot (1746248920096635) Other hammer toe(s) (acquired), right foot (M20.41) Active confirmed Problem Localized, primary osteoarthritis of the ankle and/or foot (819426673) Arthritis of joint of lesser toe, right (M19.071) Active confirmed Problem Acquired hammer toe of left foot (2442327460682516) Other hammer toe(s) (acquired), left foot (M20.42) Active confirmed Problem Localized, primary osteoarthritis of the ankle and/or foot (131051843) Arthritis of joint of lesser toe, left (M19.072) Active confirmed Vital Signs Height 5 ft 5 in in 12/17/2024 Weight 190 lbs 12/17/2024 BMI 31.61 kg/m2 12/17/2024 Blood pressure systolic 120 mm Hg 12/18/19 25 Blood pressure diastolic 78 mm Hg 025 Encounters Encounter Location Date Provider Diagnosis [facility] [address] [place] [address] 12/17/2024 Araceli Ferreira Atherosclerosis of [place] artery of both lower extremities, with unspecified presence of clinical manifestation I70.203 ; Other hammer toe(s) (acquired), left foot M20.42 ; Tinea unguium B35.1 ; Pain in right toe(s) M79.674 ; Pain in left toe(s) M79.675 and Other hammer toe(s) (acquired), right foot M20.41 Assessments Encounter Date Diagnosis (ICD Code) Assessment Notes Treatment Notes Treatment Clinical Notes Section Notes 12/17/2024 Atherosclerosis of [place] artery of both lower extremities, with unspecified [...] Follow Up: 4 Months, Reason: Provider Name:Araceli coelho, 04/18/2025 02:00:00 PM, [address] [place] [address], [phone], Procedure Notes * Category Sub-Category Detail Notes [...] instrumentation by the physician of record - 59101 Debride Nails 1-5 Procedure: Due to the [...] necessary to maintain effective symptomatic relief - 45749 Progress Notes * Muna ROSS ADOB:[birth year] (79 yo F)Acc No.[id number]:12/17/2024 Progress Notes Patient:?NEHADENAMuna Mynor Provider:?Araceli Ferreira DPM :1945???Age:79 Y???Sex:Female D ate:12/17/2024 Address:[address] [place], [place] [address] Pcp:Nisha Paz MD Subjective: * Chief Complaints: [...] M20.42 (Primary)???Specify :Chronic problem, Stable (1=3,2=4)???2.?Atherosclerosis of [place] artery of both lower extremities, with unspecified [...] necessary to maintain effective symptomatic relief - 23421.?Keratoma Treatment:?Parring or Cutting of Benign Hyperkeratotic Lesion(s)?(-56) [...] instrumentation by the physician of record - 72105.? * Procedure Codes:?88689 DEBRI DE NAIL, 1-5, Modifiers: XS 34431 TRIM SKIN LESIONS, 2 TO 4, Modifiers: [...] Ferreira DPM Date:? Generated for Litzy jonas/Jessica/eTransmitting on:?01/07/2025 04:15 PM EDT History and Physical Notes * [...]
--- OUTSIDE RECORDS SUMMARY | 2025-01-07 16:16 | XMS_ITS | Clinical Summary ---
Author Organization [facility] Address [address] [place] [address] Care Team Providers Care Audiovisual Production Specialist Name Role Phone Unavailable Primary Care Provider Unavailabl e Allergies No known active allergies Medications Medication Sig Dispensed Refills Start Date End Date Status [facility] ALL DAY PAIN RELIEF 220 MG tablet TAKE 1 TABLET (220 MG TOTAL) BY MOUTH EVERY 12 (TWELVE) HOURS NEEDED. 180 tablet 2 08/13/2019 Active nystatin (MYCOSTATIN) 483706 UNIT/ML suspension TAKE 1ML BY MOUTH 4 [...]
--- OUTSIDE RECORDS SUMMARY | 2025-01-07 16:16 | XMS_ITS | Clinical Summary ---
Author Organization [facility] Address [address] [place] [address] Care Team Providers Care New Accounts Banking Representative Name Role Phone Kelly Wise NP Primary [...] age to complete this topic Care Teams New Accounts Banking Representative Relationship Specialty Start Date End Date Kelly Wise NP PCP - General Family Medicine 12/14/17
--- OUTSIDE RECORDS SUMMARY | 2025-01-07 16:16 | XMS_ITS | Patient Health Record ---
Author [facility] [place] Address [address] [place] [address] Care Team Providers Care Milking Machine Mechanic Name Role Phone Brandi ROCA, Nisha Primary Care Provider Unavaila Araceli Mack Unavailable [phone] BlackFelisha Unavailable [phone] Allergies No Known Allergies Reason For Referral [...] Problem Acquired hammer toe of right foot (4595908453478708) Other hammer toe(s) (acquired), right foot (M20.41) Active confirmed Problem Tinea unguium (B35.1) Active confirmed Problem Acquired hammer toe of left foot (2770360898702111) Other hammer toe(s) (acquired), left foot (M20.42) Active confirmed Problem Bilateral atherosclerosis of arteries of lower limbs (disorder) (94445727415669602 ) Atherosclerosis of [place] artery of both lower extremities, with unspecified presence of clinical manifestation (I70.203) Active confirmed Q7(A), Q8(2B), Q9(1B,2 C) Problem Localized, primary osteoarthritis of the ankle and/or foot (437766804) Arthritis of joint of lesser toe, left (M19.072) Active confirmed Problem Localized, primary osteoarthritis of the ankle and/or foot (197536737) Arthritis of joint of lesser toe, right (M19.071) Active confirmed Vital Signs Blood pressure diastolic 78 mm Hg 12/17/2024 Height 5 ft 5 in in 12/17/2024 Blood pressure systolic 120 mm Hg 12/17/2024 Weight 190 lbs 12/17/2024 BMI 31.61 kg/m2 12/17/2024 Encounters Encounter Location Date Provider Diagnosis [address] [address] 12/17/2024 Araceli Hanna Atherosclerosis of [place] artery of both lower extremities, with unspecified presence of clinical manifestation I70.203 ; Other hammer toe(s) (acquired), left foot M20.42 ; Tinea unguium B35.1 ; Pain in right toe(s) M79.674 ; Pain in left toe(s) M79.675 and Other hammer toe(s) (acquired), right foot M20.[address] [address] 02/26/[address] [address] 05/09/[address] [address] 06/17/[address] [address] 09/26/[address] [address] 10/03/2024 Felisha Fong Assessments Encounter Date Diagnosis (ICD Code) Assessment Notes Treatment Notes Treatment Clinical Notes Section Notes 12/17/2024 Other hammer toe(s) (acquired), left foot (ICD-10 - M20.42) 12/17/2024 Atherosclerosis of [place] artery of both lower extremities, with unspecified presence of clinical manifestation (ICD-10 - I70.203) Q7(A), Q8(2B), Q9(1B,2C) 12/17/2024 Tinea unguium (ICD-10 - B35.1) 12/17/2024 Pain in right toe(s) (ICD-10 - M79.674) 12/17/2024 Pain in left toe(s) (ICD-10 - M79.675) 12/17/2024 Other hammer toe(s) (acquired), right foot (ICD-10 - M20.41) Plan Of Treatment Pending Test Test Name Order Date [id number] NAIL, 1-5 07/20/2015 [id number] NAIL, 1-11/14/2016 Next Appt Details Provider Name:Araceli coelho, 04/18/2025 02:00:00 PM, [address] [place] [address], [address], Insurance Providers Payer Name Payer Address Payer Phone Subscriber Number Group Number Insured Name Patient Relationship to Insured Coverage Start Date Coverage End Date [employer] 65 Medicare Preferred [address] [place] [address] [phone] [id number] Muna Leiva Self - patient is the insured Medical (General) History Medical History History ICD Code Arthritis Back,Hip,and Knee pain Cataracts Diverticulosis Hiatal hernia Osteopenia Reflux Thyroid disorder Measles Mumps Chicken pox Joint implants/screws Transfusions Surgical History Surgery Date(Month/Year) right knee arthroscopy breast surgery, bilateral hip surgery knee surgery, right 01/2016
== END 2025-01-07 15:25 | disposition home or self-care (01) ==
LOC: HO.HMGCX 15:24
PROVIDERS: PCP Internal Medicine; Visit Provider Internal Medicine
DX: K40.90 Unilateral inguinal hernia, without obstruction or gangrene, not specified as recurrent (principal)
CPT/HCPCS: 76857

== ENCOUNTER → 2025-01-07 15:26 | Outpatient (BNV) | payer MEDICARE, SELFPAY | PROVIDERS: PCP Internal Medicine; Visit Provider Radiology Diagnostic Radiology | DX: K40.90 Unilateral inguinal hernia, without obstruction or gangrene, not specified as recurrent (principal) | CPT/HCPCS: 76857 ==

== ENCOUNTER → 2025-01-16 08:28 | Outpatient (BNVA) | payer MEDICARE, SELFPAY | PROVIDERS: PCP Internal Medicine | DX: Z13.89 Encounter for screening for other disorder (principal) ==

== ENCOUNTER 2025-02-18 12:41 | Outpatient (REF) | payer MEDICARE, SELFPAY ==
--- OUTSIDE RECORDS SUMMARY | 2025-02-18 14:14 | XMS_ITS | Clinical Summary ---
Author Organization [facility] Address [address] [place] [address] Care Team Providers Care Sprinkler Fitter Name Role Phone Unavailable Primary Care Provider Unavailabl e Allergies No known active allergies Medications Medication Sig Dispensed Refills Start Date End Date Status [facility] ALL DAY PAIN RELIEF 220 MG tablet TAKE 1 TABLET (220 MG TOTAL) BY MOUTH EVERY 12 (TWELVE) HOURS NEEDED. 180 tablet 2 08/13/2019 Active nystatin (MYCOSTATIN) 918846 UNIT/ML suspension TAKE 1ML BY MOUTH 4 [...] 97 06/27/2022 9:53 AM EDT Temperature 36.3 C (97.4 F) 06/27/2022 9:53 AM EDT Respiratory Rate 19 12/29/2021 8:46 AM EDT [...] Evaluation 06/27/2023 06/27/2022, 06/22/2021, 06/24/2019 COVID-19 Vaccine (3 - season) 2024 06/13/2023, 07/04/2022 Influenza Vaccine (Season Ended) 2025 05/22/2023, 06/27/2022, 06/09/2021, Additional history exists DTap / [...]
[2025-02-18 16:42] LABS: Anion Gap 13 (12-20); Blood Urea Nitrogen 21 mg/dL (9-16); Calcium 9.1 mg/dL (8.4-10.2); Carbon Dioxide 23 mmol/L (22-29); Chloride 109 mmol/L (96-108); Estimated Glomerular Filt Rate 58; Glucose Random 102 mg/dL (60-115); Potassium 4.4 mmol/L (3.3-5.1); Sodium 141 mmol/L (135-145)
== END 2025-02-18 12:42 | disposition home or self-care (01) ==
LOC: HO.HMGCLDS 12:41
PROVIDERS: PCP Internal Medicine; Visit Provider Internal Medicine
DX: I10 Essential (primary) hypertension (principal); E03.9 Hypothyroidism, unspecified
CPT/HCPCS: 36415; 80048; 84443

== ENCOUNTER 2025-02-26 12:21 | Outpatient (AMB) | payer MEDICARE, SELFPAY ==
--- OUTSIDE RECORDS SUMMARY | 2024-10-03 09:00 | XMS_ITS ---
Author Organization [facility] Address [address] [place] [address] Care Team Providers Care Mechanical Detailer Name Role Phone Nisha Paz MD Primary Care Provider Unavaila jason IslasAraceli coelho Unavailable [phone] Felisha Fong Unavailable [phone] REASON FOR VISIT snow Medications Medication SIG (Take, Route, Fr equency, Duration) Notes Start Date End Date Status Aleve Unknown Levothyroxine Sodium Active Synthroid Unknown Diflucan Unknown Nystatin Unknown Social History Tobacco use other than smoking: Question Answer Notes Are you an other tobacco user? No Encounters Encounter Location Date Provider Diagnosis [address] [address] 10/03/2024 Felisha Fong Plan Of Treatment Next Appt Details Provider Name:Araceli Coelho Roshan laquita, 04/22/2025 04:00:00 PM, [address] [place], [address], Progress Notes * Muna ROSS ADOB:[birth year] (79 yo F)Acc No.[id number]:10/03/2024 Progress Notes Patient: Muna LEOS Provider: Julio Fong DPM :1945 A ge:78 Y S ex:Female Date:10/03/2024 Address:[address] [place], [place] [phone] Pcp:Nisha Paz MD Subjective: * Chief Complaints: [...] enies. C ardiovascular: Pacemaker d enies. M CUSTOM WOOD STAIR BUILDER d enies. W PW d enies. C [...] 0 10/03/2024 Generated for Litzy jonas/Jessica/Naomi on: 0 02/26/2025 12:56 PM EDT
--- OUTSIDE RECORDS SUMMARY | 2024-11-20 11:00 | XMS_ITS ---
Author Organization [facility] Address [address] [place] [address] Care Team Providers Care Herb Grower Name Role Phone Brandi ROCA, Nisha Primary Care Provider Codey Manzanarse Unavailable [phone] REASON FOR VISIT Patient presents today for a screening colon Encounters Encounter Location Date Provider Diagnosis [facility] [address] [facility] [address] [place] [address] 11/20/2024 Codey Martinez Plan Of Treatment Next Appt Details Provider Name:Codey Martinez , 04/25/2025 02:20:00 PM, [address], [address], [place], [address], Progress Notes * PARIS ROSSDOB: [birth year] (79 yo F)Acc No.[id number]:11/20/2024 Progress Notes Patient: PARIS LEOS Provider: Mayelin Martinze MD :1945 A ge:78 Y S ex:Female Date:11/20/2024 Address:[address] [place] [address] Pcp:Nisha Paz MD Subjective: * Chief Complaints: [...] Martinez MD Date: 0 11/20/2024 Generated for Nilei sumi/Faxing/eTransmitting on: 0 02/26/2025 12:56 PM EDT
[2025-02-26 12:27] VITALS: BP 132/84; PULSE 87; TEMP 36.5; O2SAT 97; BMI 33.2
--- NOTE | 2025-02-26 12:27 | MHC.PC.OV ---
Vital Signs 02/26/25 12:27 Height 5 ft 5 in Weight 199 lb 6 oz BMI 33.2 BP 132/84 Blood Pressure Location Lt brachial Position Sitting Pulse 87 Pulse Source Pulse Oximeter Temp 97.7 F Temp Source Temporal Artery Scan Pulse Oximetry (%) 97 Oxygen Delivery Method Room Air Intake Visit Reasons: 2 month f/u Steel Layout Worker Required: No Is last menstrual period known: No Post menopausal: Yes Patient : No Allergies No Known Allergies Allergy (Mild, Verified 02/26/25 12:31) NOT APPLICABLE Medication List - Last Reconciled 02/26/25 by Nisha Paz MD ketoconazole 2% 1 appl topical DAILY levothyroxine Take 1-1/2 tablet 1 day a week and 1 tablet daily for the rest of the week omeprazole 20 mg PO DAILY valsartan 160 mg PO DAILY Tobacco use date assessed: 02/26/25 Fall risk assessment: No Falls in past year Dental Screening Dental Screen Date: 12/18/24 Did you have a dental visit in the last 12 months?: No Did you have a dental problem in the last 6 months where you did not have access to dental care?: No Was dental information given to patient?: Patient has dentist HPI 2 month f/u HPI Details Patient presents for the follow-up on hypertension hypothyroidism stable on current medications. [facility] Medical History (Updated 02/26/25 @ 13:05 by Nisha Paz MD) GERD (gastroesophageal reflux disease) JUDGE (dyspnea on exertion) Hypothyroid HTN (hypertension) Anxiety Surgical History Hx of total knee replacement Hx of bilateral hip replacements Hx of bilateral breast reduction surgery Family History Mother Stomach cancer Father Rectal cancer Sister Mental health disorder Brother Throat cancer Brother Leukemia Social History Household Members Other:: single, retired nurse Housing: House Patient Tobacco Use Status: Never used Tobacco e-Cigarette/Vaping Use: Never Used service: No Current occupational status: retired Cognitive needs: No Hearing needs: No Vision needs: No Questionnaire PHQ-9 Over the last 2 weeks, how often have you been bothered by any of the following problems? 1. Little interest or pleasure in doing things: not at all 2. Feeling down, depressed, or hopeless: not at all 3. Trouble falling or staying asleep, or sleeping too much: nearly every day 4. Feeling tired or having little energy: several days 5. Poor appetite or overeating: nearly every day 6. Feeling bad about yourself - or that you are a failure or have let yourself or your family down: not at all 7. Trouble concentrating on things, such as reading the newspaper or watching television: not at all 8. Moving or speaking so slowly that other people could have noticed. Or the opposite - being so fidgety or restless that you have been moving around a lot more than usual: not at all 9. Thoughts that you would be better off or of hurting yourself in some way: not at all Total score: 7 Depression Screening Interpretation: Negative Depression Screening Done: Yes 88538 - PHQ-9 Billing: Yes Source: Developed by Drs. Codey Andersen, Audra Fry, Jayy Ellis and colleagues, with an educational whitney from [employer]. Thrive Questionnaire Date Thrive assessed: 02/26/25 I am a: Patient What is your living situation today?: I have a steady place to live Within the past 12 months, did the food you bought not last and you didn't have the money to get more?: Never true Within the past 12 months, did you worry whether your food would run out before you got money to buy more?: Never true Do you have trouble paying for medicines?: No Do you have trouble getting transportation to medical appointments?: No Do you have trouble paying your heating and electricity bill?: No Do you have trouble taking care of your child, family member or friend?: I choose not to answer this question Do you have trouble with day-to-day activities such as bathing, preparing meals, shopping, managing finances, etc.?: I choose not to answer this question Are you currently unemployed and looking for a job?: No Are you interested in more education?: No Please select the resources that you would like help with: None Currently or been in a relationship where the following occur: No concerns reported THRIVE Score: 0 AUDIT C Alcohol Use Questionnaire (AUDIT-C) 1. How often do you have a drink containing alcohol?: Never 3. How often do you have six or more drinks on one occasion?: Never Total Score: 0 HANK-7 AMB Questionnaire HANK-7 Date HANK - 7 assessed: 07/04/24 Source: Developed by Drs. Codey Andersen, Audra Fry, Jayy Ellis and colleagues, with an educational whitney from [employer]. Review of Systems Const All systems reviewed & are unremarkable except as noted in HPI and below ENT Reports no additional complaints Card Reports no additional complaints Resp Reports no additional complaints GI Reports no additional complaints Reports no additional complaints Physical exam (Primary Care) Vital Signs: Last Vital Signs Temp 97.7 F 02/26/25 12:27 Pulse 87 02/26/25 12:27 BP 132/84 02/26/25 12:27 Pulse Ox 97 02/26/25 12:27 Oxygen Delivery Method Room Air 02/26/25 12:27 BMI result Body Mass Index 33.2 Tobacco/Smoking Status: Tobacco use Status Tobacco use date assessed 02/26/25 02/26/25 12:32 Patient Tobacco Use Status Never used Tobacco 02/26/25 12:32 e-Cigarette/Vaping Use Never Used 02/26/25 12:32 PHQ-9: PHQ-9 Score PHQ-9: Total score 7 02/26/25 12:32 Depression Screening Interpretation: Negative Thrive Assessment: Date of Thrive Assessment Date Thrive assessed 02/26/25 02/26/25 12:32 Currently or been in a relationship where the following occur: No concerns reported Const General: no acute distress HENMT Face and sinus: Yes normal facial exam Eyes General: appearance normal, both eyes and all related structures Resp Effort & Inspection: normal respiratory effort Auscultation: clear to auscultation bilaterally Cardio Rhythm: regular rhythm Heart sounds: S1 normal heart sound present and S2 normal heart sound present Coding Level of Care Code Est Pt Level 3 (99432) Diagnoses HTN (hypertension) I10 Hypothyroid E03.9 Additional Codes PHQ-9 - 95597 - PHQ-9 Billing: Yes ([id number]) Assessment & Plan Assessment & Plan (1) HTN (hypertension): Code(s): I10 - Essential (primary) hypertension Category: Medical Plan: Continue valsartan (2) Hypothyroid: Code(s): E03.9 - Hypothyroidism, unspecified Category: Medical Plan: Continue levothyroxine follow-up in 4 months with a fasting labs before Orders: Orders Comprehensive [place]. Panel Fast 4 Months E03.9 - Hypothyroidism, unspecified, I10 - Essential (primary) hypertension, R73.9 - Hyperglycemia, unspecified TSH reflex Free T4 4 Months E03.9 - Hypothyroidism, unspecified, I10 - Essential (primary) hypertension, R73.9 - Hyperglycemia, unspecified Complete Blood Count Auto Diff 4 Months E03.9 - Hypothyroidism, unspecified, I10 - Essential (primary) hypertension, R73.9 - Hyperglycemia, unspecified
--- OUTSIDE RECORDS SUMMARY | 2025-02-26 12:57 | XMS_ITS | Clinical Summary ---
Author Organization [facility] Address [address] [place] [address] Care Team Providers Care Urban Gardening Specialist Name Role Phone Unavailable Primary Care Provider Unavailabl e Allergies No known active allergies Medications Medication Sig Dispensed Refills Start Date End Date Status [facility] ALL DAY PAIN RELIEF 220 MG tablet TAKE 1 TABLET (220 MG TOTAL) BY MOUTH EVERY 12 (TWELVE) HOURS NEEDED. 180 tablet 2 08/13/2019 Active nystatin (MYCOSTATIN) 310174 UNIT/ML suspension TAKE 1ML BY MOUTH 4 [...]
--- OUTSIDE RECORDS SUMMARY | 2025-02-26 12:57 | XMS_ITS | Clinical Summary ---
Author Organization [facility] Address [address] [place] [address] Care Team Providers Care Fur Blowing Machine Operator Name Role Phone Unavailable Primary Care Provider Unavailabl e Surgical History Surgery Date Site/Laterality Comments JOINT [...]
== END 2025-02-26 13:07 | disposition home or self-care (01) ==
LOC: HO.HMCC 12:22
PROVIDERS: PCP Internal Medicine; Visit Provider Internal Medicine
DX: I10 Essential (primary) hypertension (principal); E03.9 Hypothyroidism, unspecified

== ENCOUNTER → 2025-02-26 12:21 | Outpatient (BNVA) | payer MEDICARE, SELFPAY | PROVIDERS: PCP Internal Medicine; Visit Provider Internal Medicine | DX: I10 Essential (primary) hypertension (principal); E03.9 Hypothyroidism, unspecified; R73.9 Hyperglycemia, unspecified; Z79.899 Other long term (current) drug therapy | CPT/HCPCS: 96127; 99212 ==

== ENCOUNTER 2025-06-26 08:01 | Outpatient (REF) | payer MEDICARE, SELFPAY ==
[2025-06-26 10:15] LABS: MANUAL DIFF FLAG NO
[2025-06-26 10:25] LABS: Hematocrit 40.2 % (37.0-47.0); Hemoglobin 12.6 g/dl (12.0-16.0); Imm Gran Abs Auto 0.03 X10*3/uL (0.00-0.03); Imm Gran Pct Auto 0.4 % (0.0-0.4); Lymphocytes Absolute Auto 2.5 X10*3/uL (1.2-4.9); Mean Corpuscular HGB Conc 31.3 g/dl (31.0-35.0); Mean Corpuscular Hemoglobin 31.6 pg (27.0-33.0); Mean Corpuscular Volume 100.8 fL (80.0-98.0); NRBC Abs Auto 0.000 X10*3/uL (0.0-0.012); NRBC Pct Auto 0.0 /100WBC (0.0-0.2); Platelet Count 341 X10*3/uL (160-400); Red Blood Count 3.99 X10*6/uL (4.20-5.50); White Blood Count 6.8 X10*3/uL (4.8-10.8)
[2025-06-26 11:06] LABS: Alanine Aminotransferase 35 U/L (0-31); Albumin Level 4.3 g/dL (3.5-5.0); Alkaline Phosphatase 83 U/L (39-117); Anion Gap 11 (12-20); Aspartate Amino Transferase 29 U/L (5-31); Blood Urea Nitrogen 24 mg/dL (9-16); Calcium 8.9 mg/dL (8.4-10.2); Carbon Dioxide 23 mmol/L (22-29); Chloride 112 mmol/L (96-108); Estimated Glomerular Filt Rate 53; Potassium 4.1 mmol/L (3.3-5.1); Sodium 142 mmol/L (135-145); Total Protein 7.1 g/dL (6.5-8.0)
== END 2025-06-26 08:02 | disposition home or self-care (01) ==
LOC: HO.HMGCLDS 08:01
PROVIDERS: PCP Internal Medicine; Visit Provider Internal Medicine
DX: I10 Essential (primary) hypertension (principal); E03.9 Hypothyroidism, unspecified; R73.9 Hyperglycemia, unspecified
CPT/HCPCS: 36415; 80053; 84443; 85025

== ENCOUNTER 2025-07-01 13:02 | Outpatient (AMB) | payer MEDICARE, SELFPAY ==
--- OUTSIDE RECORDS SUMMARY | 2024-06-17 09:00 | XMS_ITS ---
Author Organization [facility] Address [address] [place] [id number] Care Team Providers Care Vest Presser Name Role Phone Nisha Paz MD Primary Care Provider Unavaila Araceli Mack Unavailable [phone] Felisha Fong Unavailable [phone] Medications Medication SIG (Take, Route, Fr equency, Duration) Notes Start Date End Date Status Synthroid Unknown Levothyroxine Sodium Active Nystatin Unknown Diflucan Unknown Aleve Unknown Social History Tobacco use other than smoking: Question Answer Notes Are you an other tobacco user? No Vital Signs Height 5 ft 5 in in 06/17/2024 Weight 190 lbs 06/17/2024 BMI 31.61 kg/m2 06/17/2024 Encounters Encounter Location Date Provider Diagnosis [address] [id number] 06/17/2024 Felisha Fong Plan Of Treatment Next Appt Details Provider Name:Araceli coelho, 07/02/2025 01:30:00 PM, [address] [place] [address], [id number], Progress Notes * Muna ROSS ADOB:[birth year] (79 yo F)Acc No.[id number]:06/17/2024 Progress Notes Patient: Jackie DOSSMICHELLE Muna Coelho Provider: Julio Fong DPM :1945 A ge:78 Y S ex:Female Date:06/17/2024 Address:[address] [place], [place] [id number] Pcp:Nisha Paz MD Subjective: * Chief Complaints: * * ROS: G eneral/Constitutional: Nausea d enies. V omiting d enies. H cristo Thirst d enies. L oss appetite d enies. C hills d enies. F atigue d enies.?Fever d enies. N ight Sweats d enies. U nexplained weight loss d enies. U nexplained weight gain d enies. H EENTM: Dentures d enies. D izziness d enies. G lasses/contacts a dmits. R etinopathy d enies. B lurred/double vision d enies. T MJ?denies. D ischarge/drainage d enies. I mplants d enies. S ore throat d enies. D ental implants d enies. H bobo of hearing d enies. D ifficulty chewing/swallowing/speaking d enies. N ose bleeds d enies. S ore mouth d enies. ? R espiratory: On Oxygen d enies. P neumonia/pleurisy d enies.?Bronchitis d enies. E mphysema d enies. C oughing d enies. C ough blood?denies. S hortness of breath d enies. W heezing d enies. C ardiovascular: Pacemaker d enies. M SOUND EQUIPMENT MECHANIC d enies. W PW d enies. C HF d enies. H eart attack d enies. S eptal defect d enies. R apid beat d enies. C hest pain d enies. A trial Fib. d enies. M urmur/Palpitations d enies. G astrointestinal: Hemorrhoids d enies. S tomach/Abdominal pain d enies. D ark blood stool d enies. I rritable bowel d enies. C onstipation a dmits. D iarrhea d enies. H ematology: Swelling d enies. C lots d enies. V aricose Veins d enies. B ruising d enies. B leeding problem d enies. G enitourinary: Blood urine d enies. F requent/Painfu/urination/bladder control d enies. K idney stones d enies. I nfection (UTI) d enies. N ephropathy d enies. s ex trans dis (STD) d enies. P rostate d enies. M usculoskeletal: Hammertoes d enies. B unions d enies. B ack Pain a dmits. M uscle Cramps/ Resting d enies. M uscle cramps / walking a dmits.?Generalized aches and pains a dmits. W eakness a dmits. I nteg.: Mojica d enies. S cars a dmits. C orns/calluses?denies. I ngrown nails d enies. P ainful nails d enies. O pen Sores d enies. R ashes d enies. N eurologic: Difficulty sleeping a dmits. B rain disorder d enies. N umbness d enies. B alance trouble a dmits. C onfusion d enies. F ainting/blackouts d enies. T ingling d enies. T remors d enies. * Medical History: A rthritis, Back,Hip,and Knee pain, Cataracts, Diverticulosis, Hiatal hernia, Osteopenia, Reflux, Thyroid disorder, Measles, Mumps, Chicken pox, Joint implants/screws, Transfusions. * Surgical History: r ight knee arthroscopy , breast surgery, bilateral , hip surgery , knee surgery, right 01/2016. * Family History: M other: , diagnosed with Other malignant neoplasm of unspecified site. F ather: , diagnosed with Other malignant neoplasm of unspecified site. * Social History: T obacco Use: T obacco Use/Smoking A re you a:: nonsmoker , Additional Findings: Tobacco Non-User: Current non- smoker. Tobacco use other than smoking A re you an other tobacco user? N o D rugs/Alcohol: D rugs H ave you used drugs other than those for medical reasons in the past 12 months? N o Alcohol Screen D id you have a drink containing alcohol in the past year?: No, Points: 0, Interpretation: Negative. M iscellaneous: C affeine: yes, frequency:, 3-5 cups per day. Children: no. Exercise: yes, walking. Marital status: single. Occupation: Retired Nurse. * Medications: T aking Levothyroxine Sodium , Unknown Synthroid , Unknown Aleve , Unknown Diflucan , Unknown Nystatin Objective: * Vitals: H t: 5 ft 5 in, Wt: 190, BMI: 31.61, Ht-cm: 165.1 cm, Wt-k.18 kg. Assessment: Plan: * Treatment: * Images: * The named appointment provid er may or may not be the originator of this progress note, and it is not deemed complete until electronically signed by the appointment provider. Sign off status: Pending * Provider: Julio Fong DPM Date: Generated for Litzy jonas/Jessica/Naomi on: 08/31/2024 03:44 PM EST
--- OUTSIDE RECORDS SUMMARY | 2024-10-03 08:00 | XMS_ITS ---
Author Organization [facility] Address [address] [place] [address] Care Team Providers Care Tab Card Press Operator Name Role Phone Nisha Paz MD Primary Care Provider Unavaila jason IslasAraceli coelho Unavailable [phone] Felisha Fong Unavailable [phone] REASON FOR VISIT snow Medications Medication SIG (Take, Route, Fr equency, Duration) Notes Start Date End Date Status Aleve Unknown Levothyroxine Sodium Active Synthroid Unknown Diflucan Unknown Nystatin Unknown Social History Tobacco use other than smoking: Question Answer Notes Are you an other tobacco user? No Encounters Encounter Location Date Provider Diagnosis [address] [address] 10/03/2024 Felisha Fong Plan Of Treatment Next Appt Details Provider Name:Araceli Coelho Roshan laquita, 07/02/2025 01:30:00 PM, [address] [place] [address], [phone], Progress Notes * Muna ROSS ADOB:[birth year] (79 yo F)Acc No.[id number]:10/03/2024 Progress Notes Patient: Muna LEOS Provider: Julio Fong DPM :1945 A ge:78 Y S ex:Female Date:10/03/2024 Address:[address] [place], [place] [id number] Pcp:Nisha Paz MD Subjective: * Chief Complaints: * 1 . Snow. * ROS: G eneral/Constitutional: Nausea d enies. [...] enies. C ardiovascular: Pacemaker d enies. M PARK INTERPRETER d enies. W PW d enies. C [...] Diflucan , Unknown Nystatin Objective: * Vitals: Assessment: Plan: * Treatment: * Images: * The named appointment provid er may or may not be the originator of this progress note, and it is not deemed complete until electronically signed by the appointment provider. Sign off status: Pending * Provider: Julio Fong DPM Date: 0 10/03/2024 Generated for Litzy jonas/Jessica/Naomi on: 08/31/2024 03:44 PM EST
--- OUTSIDE RECORDS SUMMARY | 2024-11-20 10:00 | XMS_ITS ---
Author Organization [facility] Address [address] [place] [address] Care Team Providers Care Household Worker Name Role Phone Brandi ROCA, Nisha Primary Care Provider Codey Manzanares Unavailable [phone] REASON FOR VISIT Patient presents today for a screening colon Encounters Encounter Location Date Provider Diagnosis [facility] [address] [place] [address] 11/20/2024 Codey Martinez Plan Of Treatment No Information Progress Notes * PARIS ROSSDOB: [birth year] (79 yo F)Acc No.[id number]:11/20/2024 Progress Notes Patient: PARIS LEOS Provider: Mayelin Martinez MD :1945 A ge:78 Y S ex:Female Date:11/20/2024 Address:[address] [place], [place] [phone] Pcp:Nisha Paz MD Subjective: * Chief Complaints: * 1 . Patient presents today for a screening colon. * Medical History: Objective: * Vitals: Assessment: Plan: * Treatment: * * The named appointment provid er may or may not be the originator of this progress note, and it is not deemed complete until electronically signed by the appointment provider. Sign off status: Pending * Provider: Mayelin Martinez MD Date: 0 11/20/2024 Generated for Litzy jonas/Jessica/eTjenasmitting on: 08/31/2024 03:45 PM EST
--- OUTSIDE RECORDS SUMMARY | 2025-04-18 09:00 | XMS_ITS ---
Author Organization [facility] Address [address] [place] [address] Care Team Providers Care Cement Sprayer Helper Name Role Phone Brandi ROCA, Nisha Primary Care Provider Araceli Florez Unavailable [phone] Jackson Encounters Encounter Location Date Provider Diagnosis [facility] [address] [place] [address] 04/18/2025 Araceli Ferreira Plan Of Treatment Next Appt Details Provider Name:Araceli coelho, 07/02/2025 01:30:00 PM, [address] [place], [address], Progress Notes * Muna ROSS ADOB:[birth year] (79 yo F)Acc No.[id number]:04/18/2025 Progress Note Patient: Muna LEOS Provider: Jackie Ferreira DPM :1945 A ge:79 Y S ex:Female Date:04/18/2025 Address:[address] [place] [phone] Pcp:Nisha Paz MD Subjective: * Chief Complaints: * 1 [address] Dr Jackson. * Medical History: Objective: * Vitals: Assessment: Plan: * Treatment: * Images: * The named appointment provid er may or may not be the originator of this progress note, and it is not deemed complete until electronically signed by the appointment provider. Sign off status: Pending * Provider: Jackie Ferreira DPM Date: 0 04/18/2025 Generated for Litzy jonas/Jessica/Naomi on: 1 08/31/2024 03:45 PM EST
--- OUTSIDE RECORDS SUMMARY | 2025-04-22 11:00 | XMS_ITS ---
Author Organization [facility] Address [address] [place] [address] Care Team Providers Care Fraud Representative Name Role Phone Brandi ROCA, Nisha Primary Care Provider Araceli Florez [phone] Medications Medication SIG (Take, Route, Frequency, Duration) Notes Start Date End Date Status Nystatin Not-Taking Diflucan Not-Taking Levothyroxine Sodium 100 MCG 1 capsule in the morning on an empty stomach Orally Once a day Active Aleve Not-Taking Synthroid Not-Taking Encounters Encounter Location Date Provider Diagnosis [address] [address] 04/22/2025 Araceli Ferreira Plan Of Treatment Next Appt Details Provider Name:Araceli coelho, 07/02/2025 01:30:00 PM, [address] [place] [address], [phone], Progress Notes * Muna ROSS ADOB:[birth year] (79 yo F)Acc No.[id number]:04/22/2025 Progress Note Patient: Jackie DOSSMICHELLE Muna Coelho Provider: Jackie Ferreira DPM :1945 A ge:79 Y S ex:Female Date:04/22/2025 Address:[address] [place] [phone] Pcp:Nisha Paz MD Subjective: * Chief Complaints: * * HPI: A t Risk footcare: Pt States Last PCP Visit: D ate 1 10/16/2023 * Medical History: A rthritis, Back,Hip,and Knee pain, Cataracts, Diverticulosis, Hiatal hernia, Osteopenia, Reflux, Thyroid disorder, Measles, Mumps, Chicken pox, Joint implants/screws, Transfusions. * Medications: T aking Levothyroxine Sodium 100 MCG Capsule 1 capsule in the morning on an empty stomach Orally Once a day , Not-Taking/PRN Synthroid , Not-Taking/PRN Aleve , Not-Taking/PRN Diflucan , Not-Taking/PRN Nystatin Objective: * Vitals: Assessment: Plan: * Treatment: * Images: * The named appointment provid er may or may not be the originator of this progress note, and it is not deemed complete until electronically signed by the appointment provider. Sign off status: Pending * Provider: Jackie Ferreira DPM Date: 0 04/22/2025 Generated for Litzy jonas/Jessica/Naomi on: 08/31/2024 03:45 PM EST History and Physical Notes * HPI (History of Present Illness) Category Sub-Category Detail Notes Category Not es At Risk footcare Pt States Last PCP Visit: Date: 4
--- OUTSIDE RECORDS SUMMARY | 2025-04-25 09:20 | XMS_ITS ---
Author Organization [facility] Address [address] [place] [address] Care Team Providers Care Vice President Of Engineering Name Role Phone Brandi ROCA, Nisha Primary Care Provider Codey Manzanares Unavailable [phone] REASON FOR VISIT Patient presents today for abdominal pain Encounters Encounter Location Date Provider Diagnosis [facility] [address] [place] [phone] 04/25/2025 Codey Martinez Plan Of Treatment No Information Progress Notes * PARIS ROSSDOB: [birth year] (79 yo F)Acc No.[id number]:04/25/2025 Progress Notes Patient: PARIS LEOS Provider: Mayelin Martinez MD :1945 A ge:79 Y S ex:Female Date:04/25/2025 Address:[address] [place], [place] [id number] Pcp:Nisha Paz MD Subjective: * Chief Complaints: * 1 . Patient presents today for abdominal pain. * Medical History: Objective: * Vitals: Assessment: Plan: * Treatment: * * The named appointment provid er may or may not be the originator of this progress note, and it is not deemed complete until electronically signed by the appointment provider. Sign off status: Pending * Provider: Mayelin Martinez MD Date: 0 04/25/2025 Generated for Litzy jonas/Jessica/eTransmitting on: 08/31/2024 03:44 PM EST
[2025-07-01 13:11] VITALS: BP 136/80; PULSE 89; RESP 18; TEMP 36.7; O2SAT 98; BMI 32.1
--- NOTE | 2025-07-01 13:11 | MHC.PC.OV ---
Vital Signs 07/01/25 13:11 Height 5 ft 5 in Weight 193 lb BMI 32.1 BP 136/80 Blood Pressure Location Lt brachial Position Sitting Respiration 18 Pulse 89 Pulse Source Pulse Oximeter Temp 98.1 F Temp Source Oral Pulse Oximetry (%) 98 Oxygen Delivery Method Room Air Intake Visit Reasons: 4m follow up Intake Note: Pt is here today for 4 months follow up visit. Allergies No Known Allergies Allergy (Mild, Verified 07/01/25 13:14) NOT APPLICABLE Medication List - Last Reconciled 07/01/25 by Nisha Paz MD bupropion HCl SR (Wellbutrin SR) 150 mg PO QAM ketoconazole 2% 1 appl topical DAILY levothyroxine Take 1-1/2 tablet 1 day a week and 1 tablet daily for the rest of the week omeprazole 20 mg PO DAILY valsartan 160 mg PO DAILY Tobacco use date assessed: 02/26/25 Fall risk assessment: 1 Fall in past year Last assessed Fall Risk: 07/01/25 Dental Screening Dental Screen Date: 12/18/24 HPI 4m follow up HPI Details Pt presents for f/u of HTN, hypothyroid, chronic anxiety, stable on meds. Patient has been taking Aleve PM for chronic insomnia. [facility] Medical History GERD (gastroesophageal reflux disease) JUDGE (dyspnea on exertion) Hypothyroid HTN (hypertension) Anxiety Surgical History Hx of total knee replacement Hx of bilateral hip replacements Hx of bilateral breast reduction surgery Family History Mother Stomach cancer Father Rectal cancer Sister Mental health disorder Brother Throat cancer Brother Leukemia Social History Household Members Other:: single, retired nurse Housing: House Patient Tobacco Use Status: Never used Tobacco e-Cigarette/Vaping Use: Never Used service: No Current occupational status: retired Cognitive needs: No Hearing needs: No Vision needs: No Questionnaire Thrive Questionnaire Date Thrive assessed: 12/18/24 I am a: Patient What is your living situation today?: I have a steady place to live Within the past 12 months, did the food you bought not last and you didn't have the money to get more?: Never true Within the past 12 months, did you worry whether your food would run out before you got money to buy more?: Never true Do you have trouble paying for medicines?: No Do you have trouble getting transportation to medical appointments?: No Do you have trouble paying your heating and electricity bill?: No Do you have trouble taking care of your child, family member or friend?: I choose not to answer this question Do you have trouble with day-to-day activities such as bathing, preparing meals, shopping, managing finances, etc.?: I choose not to answer this question Are you currently unemployed and looking for a job?: No Are you interested in more education?: No Please select the resources that you would like help with: None Currently or been in a relationship where the following occur: No concerns reported THRIVE Score: 0 HANK-7 AMB Questionnaire HANK-7 Date HANK - 7 assessed: 07/01/25 Feeling nervous, anxious, or on edge: 0 = Not at all Not being able to stop or control worryin = Not at all Worrying too much about different things: 0 = Not at all Trouble relaxin = Not at all Being so restless that it is hard to sit still: 0 = Not at all Becoming easily annoyed or irritable: 0 = Not at all Feeling afraid as if something awful might happen: 0 = Not at all Total HANK-7 score (0-4 normal; 5-9 mild; 10-14 moderate; 15-21 severe): 0 Source: Developed by Drs. Codey Andersen, Audra Fry, Jayy Ellis and colleagues, with an educational whitney from [employer]. Review of Systems Const All systems reviewed & are unremarkable except as noted in HPI and below Eyes Reports no additional complaints ENT Reports no additional complaints Card Reports no additional complaints Resp Reports no additional complaints GI Reports no additional complaints Reports no additional complaints Physical exam (Primary Care) Vital Signs: Last Vital Signs Temp 98.1 F 07/01/25 13:11 Pulse 89 07/01/25 13:11 Resp 18 07/01/25 13:11 BP 136/80 07/01/25 13:11 Pulse Ox 98 07/01/25 13:11 Oxygen Delivery Method Room Air 07/01/25 13:11 BMI result Body Mass Index 32.1 Tobacco/Smoking Status: Tobacco use Status Tobacco use date assessed 02/26/25 07/01/25 13:27 Patient Tobacco Use Status Never used Tobacco 07/01/25 13:27 e-Cigarette/Vaping Use Never Used 07/01/25 13:27 Thrive Assessment: Date of Thrive Assessment Date Thrive assessed 12/18/24 07/01/25 13:27 Currently or been in a relationship where the following occur: No concerns reported Const General: no acute distress HENMT Head: Yes normal to inspection Face and sinus: Yes normal facial exam Throat: Yes posterior oropharynx normal Neck Neck: Yes no lymphadenopathy and Yes supple Resp Effort & Inspection: normal respiratory effort Auscultation: clear to auscultation bilaterally Cardio Rhythm: regular rhythm Heart sounds: S1 normal heart sound present and S2 normal heart sound present GI Inspection: Yes normal to inspection Coding Level of Care Code Est Pt Level 4 (86618) Diagnoses Hypothyroid E03.9 Vitamin D deficiency E55.9 HTN (hypertension) I10 Hyperglycemia R73.9 Assessment & Plan Assessment & Plan (1) Hypothyroid: Code(s): E03.9 - Hypothyroidism, unspecified Category: Medical Plan: Continue levothyroxine (2) Vitamin D deficiency: Code(s): E55.9 - Vitamin D deficiency, unspecified Category: Medical Plan: Continue vitamin-D supplement (3) HTN (hypertension): Code(s): I10 - Essential (primary) hypertension Category: Medical Plan: Continue valsartan (4) Hyperglycemia: Code(s): R73.9 - Hyperglycemia, unspecified Category: Medical Plan: ADA diet regular exercise weight loss discussed with the patient follow-up in 5 months with a fasting labs Orders: Orders Complete Blood Count Auto Diff 5 Months E03.9 - Hypothyroidism, unspecified, E55.9 - Vitamin D deficiency, unspecified, I10 - Essential (primary) hypertension, R73.9 - Hyperglycemia, unspecified Lipid Panel 5 Months E03.9 - Hypothyroidism, unspecified, E55.9 - Vitamin D deficiency, unspecified, I10 - Essential (primary) hypertension, R73.9 - Hyperglycemia, unspecified Comprehensive [place]. Panel Fast 5 Months E03.9 - Hypothyroidism, unspecified, E55.9 - Vitamin D deficiency, unspecified, I10 - Essential (primary) hypertension, R73.9 - Hyperglycemia, unspecified TSH reflex Free T4 5 Months E03.9 - Hypothyroidism, unspecified, E55.9 - Vitamin D deficiency, unspecified, I10 - Essential (primary) hypertension, R73.9 - Hyperglycemia, unspecified Vitamin D 25-OH Total 5 Months E03.9 - Hypothyroidism, unspecified, E55.9 - Vitamin D deficiency, unspecified, I10 - Essential (primary) hypertension, R73.9 - Hyperglycemia, unspecified Hemoglobin A1c 5 Months R73.9 - Hyperglycemia, unspecified
--- OUTSIDE RECORDS SUMMARY | 2025-07-01 15:45 | XMS_ITS | Clinical Summary ---
Author Organization [facility] Address [address] [place] [address] Care Team Providers Care Gas Or Water Meter Installer Name Role Phone Unavailable Primary Care Provider Unavailabl e Allergies No known active allergies Medications Medication Sig Dispensed Refills Start Date End Date Status [facility]S ALL DAY PAIN RELIEF 220 MG tablet TAKE 1 TABLET (220 MG TOTAL) BY MOUTH EVERY 12 (TWELVE) HOURS NEEDED. 180 tablet 2 08/13/2019 Active nystatin (MYCOSTATIN) 603694 UNIT/ML suspension TAKE 1ML BY MOUTH 4 [...] 06/22/2021, 06/24/2019 COVID-19 Vaccine (3 - season) 2025 06/13/2023, 07/04/2022 Influenza Vaccine (#1) 2025 3, 06/27/2022, 06/09/2021, Additional history exists DTap [...]
--- OUTSIDE RECORDS SUMMARY | 2025-07-01 15:46 | XMS_ITS | Patient Health Record ---
Author Organization [facility] Address [address] [place] [address] Care Team Providers Care Map Plotter Name Role Phone Nisha Paz MD Primary Care Provider Codey Manzanares Unavailable [phone] Reason For Referral No Information Medications Medication [...] PM 220-25 MG Orally A ctive Nystatin 889526 UNIT 1 tablet Orally Twice a day Active Problems Problem Type SNOMED Code ICD Code Onset Dates Problem Status W/U Status Risk Notes Problem Gastroesophageal reflux disease without esophagitis (338645303) Gastroesophageal reflux disease without esophagitis (K21.9) Active confirmed Problem Bad taste in mouth (674580603) Bad taste in mouth (R43.8) Active confirmed Encounters Encounter Location Date Provider Diagnosis [facility] [address] [place] [phone] 11/14/2024 Codey Martinez [facility] [address] [place] [phone] 04/24/2025 Codey Martinez Plan Of Treatment Pending Test Test Name Order Date B12 11/17/2016 Future Test Test Name Order Date UPPER GI ENDOSCOPY 06/26/2014 COLONOSCOPY 06/26/2014 Insurance Providers Payer Name Payer Address Payer Phone Subscriber Number Group Number Insured Name Patient Relationship to Insured Coverage Start Date Coverage End Date [facility] [address] [place], [place] [id number] [phone] [id number] [place] Self - patient is the insured Medical (General) History Medical History History ICD Code Gastric ulcer--seen on EGD i n 08/2010--H.pylori negative--F/U EGD in 01/2011 showed a healed ulcer--fairly large hiatal hernia, but no esophagitis GERD--as per # 1; EGD in 2013 with a HH--no sig. esophagitis nor Jerome's Hypothyroidism Arthritis--on NSAIDs Denies KS,DM,CVA,Lung disease,renal dise ase Negative colonoscopy in 1997 , 02/2009, 06/2014 and--diverticulosis and internal hemorrhoids Bad taste in her mouth -- Kimberly reyna has been treated in 2015 and 2016 for an apparent yeast infection in the throat area by Dr. Ferris with Diflucan and nystatin Surgical History Surgery Date(Month/Year) Right hip replacement 2010 Breast reduction Right knee arthroscopy Right knee replacement scheduled for 11/27 015,but had done 01/2016
--- OUTSIDE RECORDS SUMMARY | 2025-07-01 15:46 | XMS_ITS | Clinical Summary ---
Author Organization [facility] Address [address] [place] [address] Care Team Providers Care Director Of Optimization Name Role Phone Unavailable Primary Care Provider [...] Patients (1 - 1-dose 75+ series) 2020 Falls Risk Assessment 08/05/2022 Osteoporosis Screening (Bone Density Screening) 08/05/2022 Social Influencers of Health Screening 08/05/2022 Pneumococcal Vaccine: 50+ Years (2 of 2 - PCV) 06/27/2023 06/27/2022 Depression Screening 08/28/2024 COVID-19 Vaccine (2 - 2024-2 6 season) 2025 07/04/2022 Influenza Vaccine (#1) 2025 , 06/09/2021, 06/01/2020 Cholesterol Screening (Lipid Panel) 06/27/2027 [...]
--- OUTSIDE RECORDS SUMMARY | 2025-07-01 15:46 | XMS_ITS | Patient Health Record ---
[facility] Address [address] [place] [address] Care Team Providers Care Cnc Operator Programmer Name Role Phone Brandi ROCA, Nisha Primary Care Provider Unavaila Araceli Mack Unavailable [phone] BlackFelisha Unavailable [phone] Allergies No Known Allergies Reason For Referral No Information Medications Medication SIG (Take, Route, Frequency, Duration) Notes Start Date End Date Status Nystatin Not-Taking Diflucan Not-Taking Levothyroxine Sodium 100 MCG 1 capsule in the morning on an empty stomach Orally Once a day Active Aleve Not-Taking Synthroid Not-Taking Social History Tobacco use other than smoking: Question Answer Notes Are you an other tobacco user? No Problems Problem Type SNOMED Code ICD Code Onset Dates Problem Status W/U Status Risk Notes Problem Acquired hammer toe of right foot (9604052924842133) Other hammer toe(s) (acquired), right foot (M20.41) Active confirmed Problem Tinea unguium (594382053) Tinea unguium (B35.1) Active confirmed Problem Acquired hammer toe of left foot (7189142582255972) Other hammer toe(s) (acquired), left foot (M20.42) Active confirmed Problem Bilateral atherosclerosis of arteries of lower limbs (disorder) (31780140559721446 ) Atherosclerosis of [place] artery of both lower extremities, with unspecified presence of clinical manifestation (I70.203) Active confirmed Q7(A), Q8(2B), Q9(1B,2 C) Problem Localized, primary osteoarthritis of the ankle and/or foot (899601999) Arthritis of joint of lesser toe, left (M19.072) Active confirmed Problem Localized, primary osteoarthritis of the ankle and/or foot (647896272) Arthritis of joint of lesser toe, right (M19.071) Active confirmed Vital Signs Blood pressure diastolic 78 mm Hg 12/17/2024 Height 5 ft 5 in in 12/17/2024 Blood pressure systolic 120 mm Hg 12/17/2024 Weight 190 lbs 12/17/2024 BMI 31.61 kg/m2 12/17/2024 Encounters Encounter Location Date Provider Diagnosis [facility] [address] 12/17/2024 Araceli Ferreira Atherosclerosis of [place] artery of both lower extremities, with unspecified presence of clinical manifestation I70.203 ; Other hammer toe(s) (acquired), left foot M20.42 ; Tinea unguium B35.1 ; Pain in right toe(s) M79.674 ; Pain in left toe(s) M79.675 and Other hammer toe(s) (acquired), right foot M20.41 [facility] [address] 09/26/[address] [address] 10/03/[address] [address] 04/22/2025 Araceli Ferreira Assessments Encounter Date Diagnosis (ICD Code) Assessment Notes Treatment Notes Treatment Clinical Notes Section Notes 12/17/2024 Other hammer toe(s) (acquired), left foot (ICD-10 - M20.42) 12/17/2024 Atherosclerosis of [place] artery of both lower extremities, with unspecified presence of clinical manifestation (ICD-10 - I70.203) Q7(A), Q8(2B), Q9(1B,2C) 12/17/2024 Tinea unguium (ICD-10 - B35.1) 12/17/2024 Pain in right toe(s) (ICD-10 - M79.674) 12/17/2024 Pain in left toe(s) (ICD-10 - M79.675) 12/17/2024 Other hammer toe(s) (acquired), right foot (ICD-10 - M20.41) Plan Of Treatment Pending Test Test Name Order Date [id number] NAIL, 1-07/20/2015 [id number] NAIL, 1-11/14/2016 Next Appt Details Provider Name:Araceli Lowe Roshan laquita, 07/02/2025 01:30:00 PM, [address] [place] [address], [phone], Insurance Providers Payer Name Payer Address Payer Phone Subscriber Number Group Number Insured Name Patient Relationship to Insured Coverage Start Date Coverage End Date [employer] 65 Medicare Preferred [address] [place] [address] [phone] [id number] Muna Leiva Self - patient is the insured Medical (General) History Medical History History ICD Code Arthritis Back,Hip,and Knee pain Cataracts Diverticulosis Hiatal hernia Osteopenia Reflux Thyroid disorder Measles Mumps Chicken pox Joint implants/screws Transfusions Surgical History Surgery Date(Month/Year) right knee arthroscopy breast surgery, bilateral hip surgery knee surgery, right 01/2016
== END 2025-07-01 13:52 | disposition home or self-care (01) ==
LOC: HO.HMCC 13:03
PROVIDERS: PCP Internal Medicine; Visit Provider Internal Medicine
DX: E03.9 Hypothyroidism, unspecified (principal); E55.9 Vitamin D deficiency, unspecified; I10 Essential (primary) hypertension; R73.9 Hyperglycemia, unspecified

== ENCOUNTER → 2025-07-01 13:02 | Outpatient (BNVA) | payer MEDICARE, SELFPAY | PROVIDERS: PCP Internal Medicine; Visit Provider Internal Medicine | DX: I10 Essential (primary) hypertension (principal); E03.9 Hypothyroidism, unspecified; F41.9 Anxiety disorder, unspecified; F51.04 Psychophysiologic insomnia; E55.9 Vitamin D deficiency, unspecified; R73.9 Hyperglycemia, unspecified; Z79.899 Other long term (current) drug therapy | CPT/HCPCS: 96127; 99212 ==